=== PATIENT | female | born 1990 | race Caucasian/White ===

== ENCOUNTER 2022-07-04 02:37 | Outpatient (CLI) | payer BC, SELFPAY ==
[2022-07-04 11:54] LABS: Kit/Specimen SENT
[2022-07-04 12:03] LABS: Abs Immature Grans 0.03 10^3/uL (0.0-0.06); Absolute Basophil Count 0.02 10^3/uL (0.0-0.2); Absolute Eosinophil Count 0.04 10^3/uL (0.0-0.7); Absolute Lymphocyte Count 1.77 10^3/uL (1.2-3.4); Absolute Monocyte Count 0.65 10^3/uL (0.1-0.8); Absolute Neutrophil Count 7.09 10^3/uL (1.2-6.7); Basophils % 0.2; Eosinophils % 0.4; HCT 35.9 % (36.0-46.0); HGB 12.5 g/dL (11.2-15.7); Immature Grans % 0.3; Lymphocytes % 18.4; MCHC 34.8 % (32.0-36.0); MCV 95 fL (80-95); MPV 10.3 fL (8.0-11.0); Monocytes % 6.8; Neutrophils % 73.9; Platelet Count 246 10^3/uL (130-400); RBC 3.79 10^6/uL (3.93-5.22); RDW 11.8 % (11.7-14.6); RDW-SD 40.6 fL
[2022-07-04 12:35] LABS: *AMPHETAMINES SCREEN URINE Negative (Negative); *BARBITURATES SCREEN URINE Negative (Negative); *BENZODIAZEPINES SCREEN URINE Negative (Negative); Cannabinoids THC Negative (Negative); Cocaine Screen,Urine Negative (Negative); METHADONE URINE SCREEN Negative (Negative); OPIATES URINE SCREEN Negative (Negative); Tricyclic Antidepressants Negative (Negative)
[2022-07-04 13:14] LABS: TSH (W/Ref FT4) 2.09 uIU/mL (0.36-3.74)
[2022-07-05 10:35] LABS: Hepatitis B Surface Ag Negative (Negative)
[2022-07-05 10:44] LABS: Varicella IgG Antibody Positive (See Note)
[2022-07-05 10:51] LABS: Rubella IgG Ab (UVM) Positive (See Note)
[2022-07-05 11:00] LABS: Hepatitis C Ab w Rflx HCV PCR Negative (Negative)
[2022-07-05 11:11] LABS: HIV-1/2 Ag & Ab Screen Negative (Negative)
[2022-07-05 15:09] LABS: Chlamydia Result Negative (Negative); GC Result Negative (Negative)
[2022-07-06 19:07] LABS: Syphilis IgG w/Reflex Nonreactive (Nonreactive)
[2022-07-11 14:26] LABS: Buprenorphine Negative ng/mL (Cutoff: 5.0); Norbuprenorphine Negative ng/mL (Cutoff: 2.5)
== END 2022-07-04 02:38 | disposition home or self-care (01) ==
LOC: LBO 02:38
PROVIDERS: Visit Provider Advanced Practice Midwife
DX: Z34.91 Encounter for supervision of normal pregnancy, unspecified, first trimester (principal); Z3A.10 10 weeks gestation of pregnancy
CPT/HCPCS: 36415; 80307; 86787; 86803; 86850; 86900; 86901; 87340; 87389; 87491; 87591; 84443; 85025; 86762; 86780; 87086

== ENCOUNTER 2022-07-04 12:51 | Outpatient (REF) | payer BC, SELFPAY ==
--- NOTE | 2022-07-04 11:20 | PAPFT_PTH ---
PATIENT: Svetlana Nowak LOC: [facility] U#:[id number] AGE/SX: 32/F ROOM: RE07/04/[address]: Shaneka Blount CNM : 1990 BED: DIS: 07/04/2022 SPEC #: [id number] RECD: 07/04/22 13:02 STATUS: ABHIJIT REQ #: [id number] ELIZA: 07/04/22 11:[address]: Shaneka Blount DEPT: [facility] Cytology RECD BY: Ines Snyder Tissues: 1 - CX/ENDOCX FOR PAP SMEARS Procedures: PAP THIN PREP/UVM Screening Comments: [id number]
== END 2022-07-04 12:52 | disposition home or self-care (01) ==
LOC: LBN 12:51
PROVIDERS: Visit Provider Advanced Practice Midwife
DX: Z12.4 Encounter for screening for malignant neoplasm of cervix (principal)
CPT/HCPCS: 88142

== ENCOUNTER 2022-11-06 02:14 | Outpatient (CLI) | payer BC, SELFPAY ==
[2022-11-06 10:51] LABS: HCT 35.9 % (36.0-46.0); HGB 12.2 g/dL (11.2-15.7); MCH 33.2 pg (27.0-33.0); MCV 98 fL (80-95); Platelet Count 222 10^3/uL (130-400); RBC 3.67 10^6/uL (3.93-5.22); RDW 12.6 % (11.7-14.6); RDW-SD 45.4 fL; WBC 11.41 10^3/uL (4.4-10.8)
[2022-11-06 11:07] LABS: Glucose,1 Hr (Glucola) 102 mg/dL (80-140)
== END 2022-11-06 02:15 | disposition home or self-care (01) ==
LOC: LBO 02:15
PROVIDERS: Visit Provider Advanced Practice Midwife
DX: Z34.93 Encounter for supervision of normal pregnancy, unspecified, third trimester (principal)
CPT/HCPCS: 36415; 82950; 85027

== ENCOUNTER 2022-12-17 01:51 | Outpatient (CLI) | payer BC, SELFPAY ==
--- NOTE | 2022-12-17 07:00 | DI.US_ITS ---
Exam(s) US OB ADRIANA WEIGHT EXAM: US OB ADRIANA WEIGHT CLINICAL HISTORY: growth and ADRIANA,HYPERTENSION,Z34.90. TECHNIQUE: Transabdominal obstetrical ultrasound performed. COMPARISON: US US OB 2-3 TRIMESTER from 09/05/2022 FINDINGS: Number of fetuses: 1 position: Cephalic Placental location: There is a grade 2 placenta located predominantly on the left. No evidence of pr evia. BIOMETRIC DATA: BPD: 9.05cm, 36weeks 5days HC: 32.95cm, 37weeks 3days AC: 29.38cm, 33weeks 3days FL: 6.51cm, 33weeks 4days EFW: 2,359.64g, 5lb 4.2oz, 55.9% Composite Age: 35weeks 2days ASHLEY: 01/19/2023 Heart Rate: 157bpm Amniotic fluid index: 17.13cm. Visually, amount of fluid is within normal limits. IMPRESSION: 1. Single live intrauterine gestation as above. 2. Estimated weight is 2360gms. This is the 56th percentile. 3. Amniotic fluid index is 17.1 cm. Visually within normal limits. DATA REPOSITORY:
== END 2022-12-17 02:11 ==
LOC: DI 01:52
PROVIDERS: Visit Provider Advanced Practice Midwife
DX: O10.013 Pre-existing essential hypertension complicating pregnancy, third trimester (principal); Z3A.35 35 weeks gestation of pregnancy
CPT/HCPCS: 76816

== ENCOUNTER 2023-01-02 14:53 | Outpatient (REF) | payer BC, SELFPAY ==
[2023-01-02 13:32] LABS: *AMPHETAMINES SCREEN URINE Negative (Negative); *BARBITURATES SCREEN URINE Negative (Negative); *BENZODIAZEPINES SCREEN URINE Negative (Negative); Cannabinoids THC Negative (Negative); Cocaine Screen,Urine Negative (Negative); METHADONE URINE SCREEN Negative (Negative); OPIATES URINE SCREEN Negative (Negative)
[2023-01-02 13:33] LABS: Tricyclic Antidepressants Negative (Negative)
[2023-01-05 10:26] LABS: Buprenorphine Negative ng/mL (Cutoff: 5.0); Norbuprenorphine Negative ng/mL (Cutoff: 2.5)
== END 2023-01-02 14:54 | disposition home or self-care (01) ==
LOC: LBN 14:53
PROVIDERS: Visit Provider Advanced Practice Midwife
DX: Z34.93 Encounter for supervision of normal pregnancy, unspecified, third trimester (principal); Z36.85 Encounter for antenatal screening for Streptococcus B; Z3A.36 36 weeks gestation of pregnancy
CPT/HCPCS: 80307; 80348; 87081

== ENCOUNTER 2023-01-16 10:04 | Outpatient (CLI) | payer BC, SELFPAY ==
[2023-01-16 10:41] VITALS: BP 131/85; PULSE 88
[2023-01-16 10:45] LABS: HCT 36.9 % (36.0-46.0); HGB 12.4 g/dL (11.2-15.7); MCH 32.5 pg (27.0-33.0); MCHC 33.6 % (32.0-36.0); MCV 97 fL (80-95); MPV 10.2 fL (8.0-11.0); Platelet Count 202 10^3/uL (130-400); RBC 3.82 10^6/uL (3.93-5.22); WBC 13.01 10^3/uL (4.4-10.8)
[2023-01-16 11:06] LABS: ALT 20 U/L (14-59); AST 17 U/L (15-37); Albumin 2.7 g/dL (3.4-5.0); Alkaline Phosphatase 98 U/L (46-116); Anion Gap 7.8 mmol/L (3-11); BUN 7 mg/dL (7-18); Bilirubin, Total 0.4 mg/dL (0.2-1.0); CO2 25.2 mmol/L (21.0-32.0); CREATININE 0.5 mg/dL (0.55-1.02); Calcium 8.7 mg/dL (8.5-10.1); Chloride 104 mmol/L (98-107); Estimated GFR 126.93 (mL/min/1.73m2); Glucose 85 mg/dL (74-106); LDH 152 U/L (81-234); Potassium 3.8 mmol/L (3.5-5.1); Sodium 137 mmol/L (136-145); Total Protein 6.5 g/dL (6.4-8.2); Uric Acid 3.9 mg/dL (2.6-6.0)
[2023-01-16 11:11] LABS: COMMENT (LAB VIEW ONLY) 101.74 mg/dL; PROTEIN 13.8 mg/dL; Prot/Crea Ur Ratio 0.13
[2023-01-16 11:26] VITALS: BP 131/85; PULSE 88; TEMP 36.6
--- NOTE | 2023-01-16 11:31 | W.OBNST ---
Date of service: 01/16/23 Time of Service: 11:25 NST Evaluation Reason for NST Reasons for Nonstress Test: GESTATIONAL HYPERTENSION Test and Monitor Explained Test/Monitor Explained: Test Explained, Monitor Explained and Patient Verbalized Understanding Vital Signs Blood Pressure: 131/85 Pulse: 88 Temperature: 97.9 F Urine Results Urine Protein: Negative Urine Ketones: Negative Urine Glucose: Negative Urine Blood: Negative NST Information Date on Monitor: 01/16/23 Time on Monitor: 10:09 Date off Monitor: 01/16/23 Time off Monitor: 11:18 Total Time on Monitor: 69 NST Interventions: PO Hydration and Other Contraction Frequency: Occasional NST Evaluation Patient States Movement: Present FHR Baseline: 160 Variability: Moderate 6-25 bpm Accelerations: 15x15 Decelerations: None NST Results: Reactive NST Results Other: CNM reviewed strip, aware of original tachicardia Note N/A NST Note Note: NST is reactive and reassuring. Patient had pre-eclampsia labs done which are negative. No signs of ANDUJAR, visual disturbance or epigastric pain. No edema. She will return for NST on 01/21/23. We discussed possible IOL by due date. KHOA NST Reviewed and Verified by: Shaneka Blount
[2023-01-16 11:33] VITALS: BP 131/85; PULSE 88; TEMP 36.6
== END 2023-01-16 11:20 | disposition home or self-care (01) ==
LOC: BCD 10:15 → OBS 10:16
PROVIDERS: Visit Provider Advanced Practice Midwife
DX: O13.3 Gestational [pregnancy-induced] hypertension without significant proteinuria, third trimester (principal); Z3A.38 38 weeks gestation of pregnancy
CPT/HCPCS: 59025; 36415; 80053; 85027; 82565; 83615; 84156; 84550

== ENCOUNTER 2023-01-21 13:10 | Outpatient (CLI) | payer BC, SELFPAY ==
[2023-01-21 14:53] VITALS: BP 128/75; PULSE 98; TEMP 37.1
[2023-01-21 15:19] VITALS: BP 128/75; PULSE 98
--- NOTE | 2023-01-21 15:58 | W.OBNST ---
Date of service: 01/21/23 Time of Service: 15:58 NST Evaluation Reason for NST Reasons for Nonstress Test: GESTATIONAL HYPERTENSION Gestational Age Gestational Age in Weeks and Days: 38 Weeks and 5Days Test and Monitor Explained Test/Monitor Explained: Test Explained, Monitor Explained and Patient Verbalized Understanding Vital Signs Blood Pressure: 128/75 Pulse: 98 Temperature: 98.8 F Urine Results Urine Protein: Negative Urine Ketones: Negative Urine Glucose: Negative Urine Blood: Negative NST Information Date on Monitor: 01/21/23 Time on Monitor: 14:48 Date off Monitor: 01/21/23 Time off Monitor: 15:32 Total Time on Monitor: 44 NST Interventions: PO Hydration Contraction Frequency: Irregular NST Evaluation Patient States Movement: Present FHR Baseline: 145 Variability: Moderate 6-25 bpm Accelerations: 15x15 Decelerations: Variable NST Results: Reactive Note ADRIANA (11) Indication: Other (variables) Largest Vertical Pocket: 7 Total ADRIANA: 11 Other Pertinent Findings: Heart Rate and Presentation (vertex) Coding for ADRIANA w/NST: Completed Exam NST Note Note: Category 1, reactive nonstress test with occasional variable decelerations. Bedside ultrasound performed for ADRIANA and position. vertex is noted in the pelvis and ADRIANA equals 11. NST Reviewed and Verified by: Marsha Saldivar
[2023-01-21 15:59] VITALS: BP 128/75; PULSE 98; TEMP 37.1
--- NOTE | 2023-01-21 16:28 | W.OBNST ---
Date of service: 01/21/23 Time of Service: 14:50 NST Evaluation Reason for NST Reasons for Nonstress Test: GESTATIONAL HYPERTENSION Gestational Age Gestational Age in Weeks and Days: 38 Weeks and 5Days Test and Monitor Explained Test/Monitor Explained: Test Explained, Monitor Explained and Patient Verbalized Understanding Vital Signs Blood Pressure: 128/75 Pulse: 98 Temperature: 98.8 F Urine Results Urine Protein: Negative Urine Ketones: Negative Urine Glucose: Negative Urine Blood: Negative NST Information Time on Monitor: 14:48 Date off Monitor: 01/21/23 Time off Monitor: 15:32 NST Interventions: PO Hydration Contraction Frequency: Irregular NST Evaluation Patient States Movement: Present FHR Baseline: 145 Variability: Moderate 6-25 bpm Accelerations: 15x15 Decelerations: Variable NST Results: Reactive Note N/A (see separate POCUS note from Dr. Saldivar. ) NST Note Note: NST is reactive but there were intermittent variable decelerations noted on tracing. Dr. Saldivar did ADRIANA that was 11 and we were able to see breathing on US. Decision to repeat NST and consider IOL for at 39 weeks was made. VE closed/70/-2 mid position medium consistency. KHOA NST Reviewed and Verified by: Shaneka Blount
[2023-01-21 16:30] VITALS: BP 128/75; PULSE 98; TEMP 37.1
== END 2023-01-21 16:30 | disposition home or self-care (01) ==
LOC: BCD 13:11 → OBS 14:43
PROVIDERS: Visit Provider Advanced Practice Midwife
DX: O13.3 Gestational [pregnancy-induced] hypertension without significant proteinuria, third trimester (principal); Z3A.38 38 weeks gestation of pregnancy
CPT/HCPCS: 59025

== ENCOUNTER 2023-01-24 08:43 | Outpatient (CLI) | payer BC, SELFPAY ==
[2023-01-24 09:58] VITALS: BP 140/88; PULSE 102; TEMP 36.9
[2023-01-24 10:09] VITALS: BP 140/88; PULSE 102
[2023-01-24 10:32] VITALS: BP 121/70; PULSE 96
[2023-01-24 10:33] LABS: HCT 37.3 % (36.0-46.0); HGB 12.7 g/dL (11.2-15.7); MCH 32.8 pg (27.0-33.0); MCV 96 fL (80-95); MPV 10.1 fL (8.0-11.0); Platelet Count 212 10^3/uL (130-400); RBC 3.87 10^6/uL (3.93-5.22); RDW-SD 45.5 fL
[2023-01-24 10:59] LABS: ALT 23 U/L (14-59); AST 19 U/L (15-37); Albumin 2.7 g/dL (3.4-5.0); Alkaline Phosphatase 104 U/L (46-116); Anion Gap 12.3 mmol/L (3-11); BUN 8 mg/dL (7-18); Bilirubin, Total 0.4 mg/dL (0.2-1.0); CO2 22.7 mmol/L (21.0-32.0); CREATININE 0.5 mg/dL (0.55-1.02); Calcium 8.5 mg/dL (8.5-10.1); Chloride 102 mmol/L (98-107); Estimated GFR 126.93 (mL/min/1.73m2); Glucose 94 mg/dL (74-106); Potassium 3.7 mmol/L (3.5-5.1); Sodium 137 mmol/L (136-145); Total Protein 6.5 g/dL (6.4-8.2); Uric Acid 4.3 mg/dL (2.6-6.0)
[2023-01-24 11:29] VITALS: BP 140/88; PULSE 102; TEMP 36.9
[2023-01-24 11:29] LABS: COMMENT (LAB VIEW ONLY) 40.37 mg/dL; PROTEIN 6.9 mg/dL; Prot/Crea Ur Ratio 0.17
--- NOTE | 2023-01-24 11:29 | W.OBNST ---
Date of service: 01/24/23 Time of Service: 11:29 NST Evaluation Reason for NST Reasons for Nonstress Test: GESTATIONAL HYPERTENSION Gestational Age Gestational Age in Weeks and Days: 39 Weeks and 1Days Test and Monitor Explained Test/Monitor Explained: Test Explained, Monitor Explained and Patient Verbalized Understanding Vital Signs Blood Pressure: 140/88 Pulse: 102 Temperature: 98.4 F Urine Results Urine Protein: Negative Urine Ketones: Negative Urine Glucose: Negative Urine Blood: Negative NST Information Date on Monitor: 01/24/23 Time on Monitor: 09:55 Date off Monitor: 01/24/23 Time off Monitor: 10:50 Total Time on Monitor: 55 NST Interventions: PO Hydration Contraction Frequency: 0 NST Evaluation Patient States Movement: Present FHR Baseline: 150 Variability: Moderate 6-25 bpm Accelerations: 15x15 Decelerations: None NST Results: Reactive Note N/A NST Note Note: BP 140/88 and 121/70. preeclampsia labs sent CBC and CMP WNL. urine pending. offered induction of labor today. Svetlana declines. Risks reviewed as well as signs of preeclampsia. RTO 01/28 for NST and poosible induction of labor. Dr. Saldivar notified of this plan. NST Reviewed and Verified by: Shaneka Kruse
== END 2023-01-24 11:24 | disposition home or self-care (01) ==
LOC: BCD 08:47 → OBS 09:54
PROVIDERS: Advanced Practice Midwife; Visit Provider Advanced Practice Midwife
DX: O13.3 Gestational [pregnancy-induced] hypertension without significant proteinuria, third trimester (principal); Z3A.39 39 weeks gestation of pregnancy
CPT/HCPCS: 59025; 80053; 85027; 82565; 84156; 84550

== ENCOUNTER 2023-01-28 08:04 | Outpatient (CLI) | payer BC, SELFPAY ==
[2023-01-28 10:03] VITALS: BP 127/75; PULSE 91; TEMP 36.8
[2023-01-28 10:20] VITALS: BP 127/75; PULSE 91
[2023-01-28 10:36] VITALS: BP 130/84; PULSE 92
--- NOTE | 2023-01-28 11:50 | W.OBNST ---
Date of service: 01/28/23 Time of Service: 11:50 NST Evaluation Reason for NST Reasons for Nonstress Test: GESTATIONAL HYPERTENSION Gestational Age Gestational Age in Weeks and Days: 39 Weeks and 5Days Test and Monitor Explained Test/Monitor Explained: Test Explained, Monitor Explained and Patient Verbalized Understanding Vital Signs Blood Pressure: 127/75 Pulse: 91 Temperature: 98.2 F Urine Results Urine Protein: Negative Urine Ketones: Negative Urine Glucose: Negative Urine Blood: Negative NST Information Date on Monitor: 01/28/23 Time on Monitor: 09:55 Date off Monitor: 01/28/23 Time off Monitor: 10:35 Total Time on Monitor: 40 NST Interventions: PO Hydration NST Evaluation Patient States Movement: Present FHR Baseline: 145 Variability: Moderate 6-25 bpm Accelerations: 15x15 Decelerations: None NST Results: Reactive Note N/A NST Note Note: Svetlana is here for NST for chronic hypertension. Induction at 40 weeks was discussed. Svetlana would like to wait until 40 + 1 weeks and that was scheduled. IOL methods discussed. SVE - cervix FT/70%/-2. Signs of labor reviewed. Normal labs 01/24/23. No edema. Signs of preeclampsia reviewed. NST Reviewed and Verified by: Shaneka Kruse
[2023-01-28 11:52] VITALS: BP 127/75; PULSE 91; TEMP 36.8
== END 2023-01-28 10:45 | disposition home or self-care (01) ==
LOC: BCD 08:05 → OBS 10:01
PROVIDERS: Visit Provider Advanced Practice Midwife
DX: O13.3 Gestational [pregnancy-induced] hypertension without significant proteinuria, third trimester (principal); Z3A.39 39 weeks gestation of pregnancy
CPT/HCPCS: 59025

== ENCOUNTER 2023-01-30 09:41 | Inpatient (IN) | payer BC, SELFPAY ==
[2023-01-30] VITALS (122 sets, daily range): BP systolic 104–189; BP diastolic 55–84; PULSE 79–125; RESP 16; TEMP 36.3–37.6; O2SAT 96–100; BMI 34.6
[2023-01-30 09:59] LABS: Source Nasal/Nares
[2023-01-30 10:13] LABS: ROM Plus Positive
[2023-01-30 10:23] LABS: HCT 37.5 % (36.0-46.0); HGB 13.3 g/dL (11.2-15.7); MCH 33.3 pg (27.0-33.0); MCHC 35.5 % (32.0-36.0); MCV 94 fL (80-95); MPV 10.2 fL (8.0-11.0); Platelet Count 253 10^3/uL (130-400); RBC 3.99 10^6/uL (3.93-5.22); RDW-SD 45.1 fL; WBC 18.91 10^3/uL (4.4-10.8)
[2023-01-30 10:33] LABS: COVID-19 PCR Negative (Negative)
[2023-01-30 10:45] LABS: ALT 21 U/L (14-59); AST 19 U/L (15-37); Albumin 2.9 g/dL (3.4-5.0); Alkaline Phosphatase 116 U/L (46-116); Anion Gap 12.6 mmol/L (3-11); BUN 6 mg/dL (7-18); Bilirubin, Total 0.4 mg/dL (0.2-1.0); CO2 20.4 mmol/L (21.0-32.0); CREATININE 0.5 mg/dL (0.55-1.02); Calcium 8.9 mg/dL (8.5-10.1); Chloride 103 mmol/L (98-107); Estimated GFR 126.93 (mL/min/1.73m2); Glucose 92 mg/dL (74-106); Potassium 3.8 mmol/L (3.5-5.1); Sodium 136 mmol/L (136-145); Total Protein 6.9 g/dL (6.4-8.2)
--- NOTE | 2023-01-30 12:28 | HPE_ITS ---
Date of service: 01/30/23 Time of Service: 12:28 Assessment and Plan Assessment and plan (1) Spontaneous onset of labor: Status: Acute Assessment and plan: Admit to Center. Comfort measures. Covid- 19 test. Anticipate . (2) Stage 1 hypertension: Status: Acute Assessment and plan: preeclampsia labs ordered with admission labs. Will continue to monitor BP. OB-HPI Labor/Delivery History of Present Illness Reason for Visit: Early Labor Chief Complaint: Uterine Contractions; Suspected Rupture of Membranes (clear fluid) , Associated Signs and Symptoms of Suspected ROM: none. ASHLEY Calculator Estimated Delivery Date Method Current WG Current Estimate 01/30/23 LMP (Certain) 40w 0d Other Estimates 01/27/23 Ultrasound #1 40w 3d Comments: Svetlana called and reported SROM at 0130 with contractions that began at 0230. History of Present Expected Delivery Route/Plan - CNM FOB/ - Adal Nowak BG - Lily Desires low intervention labor, interested in using tub, open to epidural if needed GBS negative Specific Issues/Plan 1. Panorama LR female, declines CF/SMA and AFP 2. Stage I HTN, start low dose ASA @ 12 wks- 2a. growth US at 33 weeks -56%ile, 17.1 PFSH All Active Problems (Updated 01/30/23 @ 12:48 by Shaneka Kruse CNM) Spontaneous onset of labor (Acute) Stage 1 hypertension (Acute) (Acute) Medical History (Updated 01/30/23 @ 12:48 by Shaneka Kruse CNM) Positive test Family History (Updated 07/04/22 @ 10:50 by Shaneka Bolunt CNM) Father Hyperlipidemia Hypertension Mother Hyperlipidemia Paternal Grandmother Heart disease Hypertension Paternal Uncle Heart disease Hypertension Paternal Aunt Heart disease Hypertension Paternal Grandfather Cancer stomach cancer Social History (Updated 07/04/22 @ 10:53 by Shaneka Blount CNM) Smoking/Tobacco Use Status: Never Second Hand Exposure: No Smoking risk assessment performed?: Yes Alcohol Intake: former Adopted: No Foster care: No Household members: spouse Housing: house Communication Needs: None Do you need help understanding health information?: Never current occupation: homemaker Pets and animals: Yes (Photos to Photos, Key) Sexually active: Yes Do you think of yourself as: straight/heterosexual Current gender identity: female History History 1 Para 0 Hx # Term Pregnancies 0 Multiple births 0 Hx # Pregnancies 0 Ectopic pregnancies 0 AB induced 0 Hx Number of Living Children 0 AB spontaneous 0 Meds Allergies and Home Medications Allergies Allergy/AdvReac Type Severity Reaction Status Date / Time No Known Allergies Allergy Verified 01/16/23 09:33 Home Medications Medication Instructions Recorded Confirmed Type prenat.vits,blas,iyf-vviz-dguqu 1 tab PO DAILY 05/22/22 01/16/23 History aspirin 81 mg tablet,delayed 81 mg PO DAILY 07/31/22 01/16/23 History release famotidine 10 mg tablet (Pepcid AC) 10 mg PO DAILY PRN 12/19/22 01/16/23 History Exam Detailed Labor and Delivery Exam Dilation: 0.5 Effacement (%): 90 station: -1 Cervix position: mid Consistency: soft Vargas Score: Cervical Points Exam 0 1 2 3 Dilation Closed 1-2cm 3-4 cm 5-6cm Effacement 0-30% 40-50% 60-70% 80% Consistency Firm Medium Soft Station -3 -2 -1,0 +1,+2 Position Posterior Mid Anterior Amniotic Membrane Status: Ruptured Rupture Method: Spontaneous Amniotic Fluid: Clear Pooling: Negative Nitrazine: Equivocal ROM Plus: Positive Monitor Mode: External Contraction Frequency(min): every 3 min Contraction Duration(sec): 50-60 Contraction Intensity: Mild/Moderate Fetus A Heart Rate Baseline: 140 Monitor Accelerations: 15 X 15 Monitor Decelerations: None Variability: Moderate (6-25 BPM) Presentation: Vertex Categories: Category I Date of Membrane Rupture: 01/30/23 Time of Membrane Rupture: 01:30 Respiratory Exam Respiratory Exam: Normal Cardiovascular Exam Cardiovascular Exam: Normal Abdominal Exam Abdominal Exam: Normal Exam Exam: Normal Extremities Exam Extremities Exam: Normal Skin Exam Skin Exam: Normal (no edema) Psychiatric Exam Psychiatric Exam: Normal (tired) Results Abnormal Lab Findings: Abnormal Labs 01/30/23 01/30/23 10:05 10:05 WBC 18.91 H MCH 33.3 H Carbon Dioxide 20.4 L Anion Gap 12.6 H BUN 6 L Creatinine 0.5 L Albumin 2.9 L Risk Assessment Risk for Shoulder Dystocia Historical/Initial OB: NEGATIVE FOR: Pelvic Abnormality, Pre- BMI>30, Previous Shoulder Dystocia or Previous Macrosomia Delivery Plan @ 36wks: spont labor, Delivery Plan @ 40 wks: planned Risk for Pre-Eclampsia Date Initiated/Initials: 07/04/22 Yes, if one or more: POSTIVE FOR: Chronic HTN; NEGATIVE FOR: Hx Pre-E/Gest HTN, Multiple Gestation, Pre-gestational DM, Renal Disease, Systemic Lupus or APA Syndrome Yes, if 2 or more: POSITIVE FOR: Nulliparity; NEGATIVE FOR: Age>= 35 yrs, >10yr btwn pregnancies, BMI>30, ethinicty, Mother/Sister w/ Pre-E or Previous IUGR Risk for Post- Hemorrhage Initial: NEGATIVE FOR: Multiple Gestation, Previous PPH, Known Clotting Deficiency, Grand Multiparity or Anticoagulation Counseled re: Active Management: Yes Risks Reviewed Risks Reviewed Upon Admission: Yes
--- NOTE | 2023-01-30 15:28 | W.ANESPRE ---
General Info Date of Service Date Performed: 01/30/23 Height: 5 ft 2 in Weight: 85.899 kg Body Mass Index (BMI): 34.6 Meds Allergies and Home Medications Allergies Allergy/AdvReac Type Severity Reaction Status Date / Time No Known Allergies Allergy Verified 01/16/23 09:33 Home Medication Medication Instructions Recorded prenat.vits,blas,jch-cyio-zpoax 1 tab PO DAILY 05/22/22 aspirin 81 mg tablet,delayed 81 mg PO DAILY 07/31/22 release famotidine 10 mg tablet (Pepcid AC) 10 mg PO DAILY PRN 12/19/22 Current Visit Medications: Current Medications Generic Name Dose Route Start Last Admin Trade Name Freq PRN Reason Stop Dose Admin Fentanyl/Ropivacaine 200 ml 01/30/23 15:00 Fentanyl/Ropivacaine 2 Mcg/Ml And 0.1% 200 Ml Cadd Cassette EP DIRECTED VAN Sodium Chloride 500 mls @ 0 mls/hr 01/30/23 09:41 Saline 500ml Bag IV PRN PRN As Directed Ringer's Solution 500 mls @ 500 mls/hr 01/30/23 15:00 IV 01/30/23 15:59 BOLUS ONE IV Miscellaneous Supplies 1 each 01/30/23 09:45 Iv Access IV DIRECTED VAN Sodium Chloride 0 ml 01/30/23 09:41 Normal Saline Flush 10 Ml Syr IVP PRN PRN PFSH Active Problems Active Problems: Problem Status Onset Code Spontaneous onset of labor Stage 1 hypertension I10 Z34.90 Medical History Medical History (Updated 01/30/23 @ 12:48 by Shaneka Kruse CNM) Positive test Tobacco Smoking/Tobacco Use Status: Never Second hand exposure: No Alcohol Alcohol Intake: former Prental History History 1 Para 0 Hx # Term Pregnancies 0 Multiple births 0 Hx # Pregnancies 0 Ectopic pregnancies 0 AB induced 0 Hx Number of Living Children 0 AB spontaneous 0 Vital Signs and Lab Results Vital Signs Most Recent Vital Signs in EMR: Most Recent Vital Signs Temp Pulse Resp BP 36.8 C 100 H 16 126/76 01/30/23 09:32 01/30/23 13:41 01/30/23 09:32 01/30/23 13:41 Lab Results 01/30/23 10:05 01/30/23 10:05 Blood Type / Crossmatch: Patient ABO/Rh O Positive 01/30/23 Antibody Screen NEGATIVE 01/30/23 Complete Blood Count: White Blood Count 18.91 10^3/uL (4.4-10.8) H 01/30/23 10:05 Red Blood Count 3.99 10^6/uL (3.93-5.22) 01/30/23 10:05 Hemoglobin 13.3 g/dL (11.2-15.7) 01/30/23 10:05 Hematocrit 37.5 % (36.0-46.0) 01/30/23 10:05 Platelet Count 253 10^3/uL (130-400) 01/30/23 10:05 Complete Metabolic Panel: Sodium 136 mmol/L (136-145) 01/30/23 10:05 Potassium 3.8 mmol/L (3.5-5.1) 01/30/23 10:05 Chloride 103 mmol/L (98-107) 01/30/23 10:05 Carbon Dioxide 20.4 mmol/L (21.0-32.0) L 01/30/23 10:05 BUN 6 mg/dL (7-18) L 01/30/23 10:05 Creatinine 0.5 mg/dL (0.55-1.02) L 01/30/23 10:05 Est GFR (CKD-EPI 2020) 126.93 (mL/min/1.73m2) 01/30/23 10:05 Calcium 8.9 mg/dL (8.5-10.1) 01/30/23 10:05 Albumin 2.9 g/dL (3.4-5.0) L 01/30/23 10:05 Glucose 92 mg/dL (74-106) 01/30/23 10:05 Liver Function Panel: Alanine Aminotransferase (ALT/SGPT) 21 U/L (14-59) 01/30/23 10:05 Aspartate Amino Transf (AST/SGOT) 19 U/L (15-37) 01/30/23 10:05 Coagulation Panel: No Data to Display Cardiac Panel: No Data to Display Arterial Blood Gas: No Data to Display Venous Blood Gas: No Data to Display Pancreas Panel: No Data to Display Thyroid Panel: No Data to Display Infectious Disease: Coronavirus (COVID-19)(PCR) Negative (Negative) 01/30/23 09:50 Coronavirus 2019 Source Nasal/Nares 01/30/23 09:50 Blood Cultures: No Data to Display Toxicology Panel: Urine Amphetamines Screen Negative (Negative) 01/02/23 10:30 Urine Benzodiazepines Screen Negative (Negative) 01/02/23 10:30 Urine Barbiturates Screen Negative (Negative) 01/02/23 10:30 Urine Cocaine Screen Negative (Negative) 01/02/23 10:30 Urine Methadone Screen Negative (Negative) 01/02/23 10:30 Urine Opiates Screen Negative (Negative) 01/02/23 10:30 Ur Tricyclic Antidepressants Screen Negative (Negative) 01/02/23 10:30 Ur Tetrahydrocannabinol (THC) Scrn Negative (Negative) 01/02/23 10:30 Panel: No Data to Display Anesthesia Assessment and Plan Anesthesia History Personal History: No History of Anesthesia Complications Family History: No Family History of Anesthesia Complications Exercise Tolerance Exercise Tolerance: Metabolic Equivalents>4 Pertinent Negatives Pertinent Negatives: No Symptoms of GERD Cardiac & Pulmonary Exam Cardiac Exam: Normal S1/S2 Heart Sounds Pulmonary Exam: Clear Bilateral Breath Sounds Implantable Cardiac Device Does patient have a Pacemaker or an ICD?: No Airway Exam Known Difficult Airway: No Mallampati Class: 2 Mouth Opening: Normal (> 3cm) Thyromental Distance: Greater than 3 cm Neck Range of Motion: Full ROM Neck Circumference: Normal Teeth Condition: Normal Dentition ASA Classification ASA Score: ASA 2 Emergency Case?: No NPO Status NPO Status: NPO Clears >2 hours, Solids >8 hours Status Status: Confirmed Anesthesia Plan Resuscitation Status: Full Code Anesthesia Technique: Epidural Anesthesia Airway Planned: Natural Airway Pain Management: Surgeon and patient request nerve block Monitors Used: Standard Monitors
[2023-01-30] MEDS: Lactated Ringers 500 ML IV (15:30)
--- NOTE | 2023-01-30 16:03 | ANES.NEUR_ITS ---
Epidural/Spinal Catheter Date Performed: 01/30/23 Procedure Start: 15:41 Procedure Stop: 15:52 Requesting Provider: Shaneka Kruse Procedure Location: Obstetrics Reason Performed: Labor Epidural Standard Monitors Applied: Blood Pressure, SpO2 and See EMR for corresponding vital signs Patient Position: Sitting Sedation Given (Indicate Dose Given): No Sedation given Patient Mental Status: Awake Sterility: Hand Hygiene, Surgical Cap, Surgical Mask, Sterile Gloves, Sterile Drape/Sheet and Chlorhexidine Procedure Location: L3-L4 Interspace Epidural Needle: Tuohy 17 Guage Needle Length: 3.5 Inch Needle Approach: Midline Epidural Procedure: Skin Prepped, Sterile Drape Placed, 1% Lidocaine to skin and subcutaneous tissue with 25G needle, Tuohy Needle placed, CALIN to Saline Used, Epidural Catheter Placed, Negative Heme, Negative CSF Flow and Tuohy Needle Removed Catheter Placed?: Catheter Placed Test Dose (Indicate Dose Given): 5ml 1.5% Lidocaine with 1:200K Epinephrine Given and Negative Test Dose Loss of Resistance Depth (cm): 8 Catheter depth at skin (cm): 14 Dressing: Sorbaview Dressing Placed, Mastisol Used and Dressing reinforced with Tape Epidural Pr ovider Bolus (Indicate Dose Given): Total Bupivacaine 0.25% Given (ml) Dose:: 2 ml Additives (Indicate Dose Given ): Fentanyl PF Dose:: 25 Infusion Medication: Medication Infusion Began Medication Infusion: Ropivacaine 0.1% with Fentanyl 2mcg/ml Maintenance Infusion Rate (ml/hour): 10 PCEA Bolus Dose (ml): 5 Block Level: T9 Paresthesia: None Ultrasound: Not Used Number of Attempts (See previous attempts in note section): 1 Procedure Tolerated: No Complications and Patient tolerated well Procedure Outcome: Successful Performed By: Lorne Martinez
[2023-01-30] MEDS: Bupivacaine 0.25% Pres-Free 10 ML VIAL EP (16:04)
[2023-01-30] MEDS: FentaNYL/ROPIvacaine 2 mcg/ml and 0.1% 200 ML CADD Cassette EP (16:04)
[2023-01-30] MEDS: fentaNYL 100 MCG/2 ML VIAL EP (16:05)
--- NOTE | 2023-01-30 16:45 | W.PM.OBNL1 ---
Date of service: 01/30/23 Time of Service: 16:46 Informed Consent Informed Consent: Risk,Benefits,Alternatives Discussed (all methods of pain relief discussed. ) Pelvic Exam Dilation: 1 Effacement (%): 100 station: -1 Cervix Position: posterior Consistency: soft Vaginal Exam Presentation: Vertex Pooling: Positive Contractions Monitor Mode: External Contraction Frequency(min): every 3-4 Contraction Duration(sec): 50-60 Intensity: Mild/Moderate Fetus A Monitor: External (US) Heart Rate Baseline: 140 Presentation: Vertex Variability: Moderate (6-25 BPM) Categories: Category I FHR Rhythm: Regular Accelerations: 15 X 15 Decelerations: None Amniotic Membrane Status: Ruptured Assessment and Plan Assessment and plan (1) Spontaneous onset of labor: Status: Acute Assessment and plan: Epidural provided by Lorne mcmillan CRNA. with excellent effect. Continue to assess progress in labor, consider pitocin if indicated, Anticipate (2) Prolonged rupture of membranes: Status: Acute Assessment and plan: Afebrile. Anticipate Objective Abnormal lab results 01/30/23 01/30/23 Range/Units 10:05 10:05 WBC 18.91 H (4.4-10.8) 10^3/uL MCH 33.3 H (27.0-33.0) pg Carbon Dioxide 20.4 L (21.0-32.0) mmol/L Anion Gap 12.6 H (3-11) mmol/L BUN 6 L (7-18) mg/dL Creatinine 0.5 L (0.55-1.02) mg/dL Albumin 2.9 L (3.4-5.0) g/dL Temp Pulse Resp BP Pulse Ox 97.3 F L 103 H 16 108/56 L 98 01/30/23 15:45 01/30/23 16:44 01/30/23 09:32 01/30/23 16:39 01/30/23 16:44 Laboratory Results WBC 18.91 10^3/uL (4.4-10.8) H 01/30/23 10:05 RBC 3.99 10^6/uL (3.93-5.22) 01/30/23 10:05 Hgb 13.3 g/dL (11.2-15.7) 01/30/23 10:05 Hct 37.5 % (36.0-46.0) 01/30/23 10:05 MCV 94 fL (80-95) 01/30/23 10:05 MCH 33.3 pg (27.0-33.0) H 01/30/23 10:05 MCHC 35.5 % (32.0-36.0) 01/30/23 10:05 RDW 13.0 % (11.7-14.6) 01/30/23 10:05 Plt Count 253 10^3/uL (130-400) 01/30/23 10:05 MPV 10.2 fL (8.0-11.0) 01/30/23 10:05 Sodium 136 mmol/L (136-145) 01/30/23 10:05 Potassium 3.8 mmol/L (3.5-5.1) 01/30/23 10:05 Chloride 103 mmol/L (98-107) 01/30/23 10:05 Carbon Dioxide 20.4 mmol/L (21.0-32.0) L 01/30/23 10:05 Anion Gap 12.6 mmol/L (3-11) H 01/30/23 10:05 BUN 6 mg/dL (7-18) L 01/30/23 10:05 Creatinine 0.5 mg/dL (0.55-1.02) L 01/30/23 10:05 Est GFR (CKD-EPI 2020) 126.93 (mL/min/1.73m2) 01/30/23 10:05 Glucose 92 mg/dL (74-106) 01/30/23 10:05 Calcium 8.9 mg/dL (8.5-10.1) 01/30/23 10:05 Total Bilirubin 0.4 mg/dL (0.2-1.0) 01/30/23 10:05 AST 19 U/L (15-37) 01/30/23 10:05 ALT 21 U/L (14-59) 01/30/23 10:05 Alkaline Phosphatase 116 U/L (46-116) 01/30/23 10:05 Total Protein 6.9 g/dL (6.4-8.2) 01/30/23 10:05 Albumin 2.9 g/dL (3.4-5.0) L 01/30/23 10:05 Membranes Rupture Positive 01/30/23 09:30 COVID-19 Source Nasal/Nares 01/30/23 09:50 SARS-CoV-2 (PCR) Negative (Negative) 01/30/23 09:50 Patient ABO/Rh O Positive 01/30/23 10:05 Antibody Screen NEGATIVE 01/30/23 10:05 Subjective Interval history since last seen: Svetlana used the shower for comfort and the ball. She came out of the shower and was examined. She complains of feeling tired and is having a difficult time managing the pain. She requests an episural for pain relief. Results Hemoglobin/Hematocrit: Hgb 13.3 g/dL (11.2-15.7) 01/30/23 10:05 Hct 37.5 % (36.0-46.0) 01/30/23 10:05 Abnormal Lab Findings: Abnormal Labs 01/30/23 01/30/23 10:05 10:05 WBC 18.91 H MCH 33.3 H Carbon Dioxide 20.4 L Anion Gap 12.6 H BUN 6 L Creatinine 0.5 L Albumin 2.9 L
[2023-01-30] MEDS: Oxytocin/Normal Saline 30 UNIT/500 ML BAG 2 UNITS IV (18:13)
[2023-01-30] MEDS: Lactated Ringers 1,000 ML 125 ML IV (18:19)
[2023-01-30] MEDS: Calcium Carbonate *TUMS* 500 MG CHEW 1000 MG PO (20:30)
--- NOTE | 2023-01-30 22:03 | W.PM.OBNL1 ---
Date of service: 01/30/23 Time of Service: 22:03 Informed Consent Informed Consent: Risk,Benefits,Alternatives Discussed (all methods of pain relief discussed. ) Pelvic Exam Dilation: 4 Effacement (%): 100 station: -1 Position: LOP Cervix Position: mid Consistency: medium Vaginal Exam Presentation: Vertex Pooling: Positive Comments: cervix edematous, bloody fluid noted after exam. Contractions Monitor Mode: External Contraction Frequency(min): evry 2-3 Contraction Duration(sec): 50 Intensity: Moderate Fetus A Monitor: External (US) Heart Rate Baseline: 140 Presentation: Vertex Variability: Moderate (6-25 BPM) Categories: Category I Accelerations: 15 X 15 Decelerations: Early Recurrence: Episodic Amniotic Membrane Status: Ruptured Assessment and Plan Assessment and plan (1) Spontaneous onset of labor: Status: Acute Assessment and plan: Continue pitocin augmentation to maintain adequate labor pattern. Dr. Saldivar was notified of patient's status by telephone. (2) Prolonged rupture of membranes: Status: Acute Assessment and plan: Afebrile. Will continue to assess vital signs (3) Stage 1 hypertension: Status: Acute Assessment and plan: B.P. is currently . Will continue to monitor B.P readings. Objective Abnormal lab results 01/30/23 01/30/23 Range/Units 10:05 10:05 WBC 18.91 H (4.4-10.8) 10^3/uL MCH 33.3 H (27.0-33.0) pg Carbon Dioxide 20.4 L (21.0-32.0) mmol/L Anion Gap 12.6 H (3-11) mmol/L BUN 6 L (7-18) mg/dL Creatinine 0.5 L (0.55-1.02) mg/dL Albumin 2.9 L (3.4-5.0) g/dL Temp Pulse Resp BP Pulse Ox 98.8 F 87 16 115/56 L 98 01/30/23 21:18 01/30/23 21:49 01/30/23 18:00 01/30/23 21:49 01/30/23 19:29 Laboratory Results WBC 18.91 10^3/uL (4.4-10.8) H 01/30/23 10:05 RBC 3.99 10^6/uL (3.93-5.22) 01/30/23 10:05 Hgb 13.3 g/dL (11.2-15.7) 01/30/23 10:05 Hct 37.5 % (36.0-46.0) 01/30/23 10:05 MCV 94 fL (80-95) 01/30/23 10:05 MCH 33.3 pg (27.0-33.0) H 01/30/23 10:05 MCHC 35.5 % (32.0-36.0) 01/30/23 10:05 RDW 13.0 % (11.7-14.6) 01/30/23 10:05 Plt Count 253 10^3/uL (130-400) 01/30/23 10:05 MPV 10.2 fL (8.0-11.0) 01/30/23 10:05 Sodium 136 mmol/L (136-145) 01/30/23 10:05 Potassium 3.8 mmol/L (3.5-5.1) 01/30/23 10:05 Chloride 103 mmol/L (98-107) 01/30/23 10:05 Carbon Dioxide 20.4 mmol/L (21.0-32.0) L 01/30/23 10:05 Anion Gap 12.6 mmol/L (3-11) H 01/30/23 10:05 BUN 6 mg/dL (7-18) L 01/30/23 10:05 Creatinine 0.5 mg/dL (0.55-1.02) L 01/30/23 10:05 Est GFR (CKD-EPI 2020) 126.93 (mL/min/1.73m2) 01/30/23 10:05 Glucose 92 mg/dL (74-106) 01/30/23 10:05 Calcium 8.9 mg/dL (8.5-10.1) 01/30/23 10:05 Total Bilirubin 0.4 mg/dL (0.2-1.0) 01/30/23 10:05 AST 19 U/L (15-37) 01/30/23 10:05 ALT 21 U/L (14-59) 01/30/23 10:05 Alkaline Phosphatase 116 U/L (46-116) 01/30/23 10:05 Total Protein 6.9 g/dL (6.4-8.2) 01/30/23 10:05 Albumin 2.9 g/dL (3.4-5.0) L 01/30/23 10:05 Membranes Rupture Positive 01/30/23 09:30 COVID-19 Source Nasal/Nares 01/30/23 09:50 SARS-CoV-2 (PCR) Negative (Negative) 01/30/23 09:50 Patient ABO/Rh O Positive 01/30/23 10:05 Antibody Screen NEGATIVE 01/30/23 10:05 Objective Narrative Objective Narrative: BP is 115-139/56/79 Subjective Interval history since last seen: Svetlana has epidural analgesia infusing and received excellent pain relief. She received an IV bolus for hypotension after epidural was placed. She is resting comfortably in various positions. Contractions were every 5 minutes and pitocin augmentation was started and is running at a rate of 10 mu/minute. Results Hemoglobin/Hematocrit: Hgb 13.3 g/dL (11.2-15.7) 01/30/23 10:05 Hct 37.5 % (36.0-46.0) 01/30/23 10:05 Abnormal Lab Findings: Abnormal Labs 01/30/23 01/30/23 10:05 10:05 WBC 18.91 H MCH 33.3 H Carbon Dioxide 20.4 L Anion Gap 12.6 H BUN 6 L Creatinine 0.5 L Albumin 2.9 L
--- NOTE | 2023-01-30 23:26 | W.PM.OBNL1 ---
Date of service: 01/30/23 Time of Service: 23:26 Informed Consent Informed Consent: Risk,Benefits,Alternatives Discussed (all methods of pain relief discussed. ) Pelvic Exam Dilation: 4 Effacement (%): 100 station: -1 Cervix Position: mid Consistency: medium Comments: bloody fluid noted. IUPC placed and cosme placed for 600 cc clear yellow urine. cervix is edematous Contractions Monitor Mode: External Contraction Frequency(min): every 2-4 Contraction Duration(sec): 60 IUPC resting tone (mmHg): 20 IUPC peak pressure (mmHg): 50 Fetus A Monitor: External (US) Heart Rate Baseline: 140 Variability: Moderate (6-25 BPM) Categories: Category I Accelerations: 15 X 15 Decelerations: Early and Variable Assessment and Plan Assessment and plan (1) Prolonged rupture of membranes: Status: Acute Assessment and plan: hourly temperature (2) Spontaneous onset of labor: Status: Acute Assessment and plan: Pitocin augmentation. Will consider increasing pitocin rate if indicated by [place] units. Will plan to re-examine in 2 hours for descent and cervical change. Svetlana was notified of this plan. (3) Stage 1 hypertension: Status: Acute Assessment and plan: B.P. 129-135/59-80 Objective Abnormal lab results 01/30/23 01/30/23 Range/Units 10:05 10:05 WBC 18.91 H (4.4-10.8) 10^3/uL MCH 33.3 H (27.0-33.0) pg Carbon Dioxide 20.4 L (21.0-32.0) mmol/L Anion Gap 12.6 H (3-11) mmol/L BUN 6 L (7-18) mg/dL Creatinine 0.5 L (0.55-1.02) mg/dL Albumin 2.9 L (3.4-5.0) g/dL Temp Pulse Resp BP Pulse Ox 99.6 F 86 16 129/59 L 98 01/30/23 23:17 01/30/23 23:17 01/30/23 18:00 01/30/23 23:17 01/30/23 19:29 Laboratory Results WBC 18.91 10^3/uL (4.4-10.8) H 01/30/23 10:05 RBC 3.99 10^6/uL (3.93-5.22) 01/30/23 10:05 Hgb 13.3 g/dL (11.2-15.7) 01/30/23 10:05 Hct 37.5 % (36.0-46.0) 01/30/23 10:05 MCV 94 fL (80-95) 01/30/23 10:05 MCH 33.3 pg (27.0-33.0) H 01/30/23 10:05 MCHC 35.5 % (32.0-36.0) 01/30/23 10:05 RDW 13.0 % (11.7-14.6) 01/30/23 10:05 Plt Count 253 10^3/uL (130-400) 01/30/23 10:05 MPV 10.2 fL (8.0-11.0) 01/30/23 10:05 Sodium 136 mmol/L (136-145) 01/30/23 10:05 Potassium 3.8 mmol/L (3.5-5.1) 01/30/23 10:05 Chloride 103 mmol/L (98-107) 01/30/23 10:05 Carbon Dioxide 20.4 mmol/L (21.0-32.0) L 01/30/23 10:05 Anion Gap 12.6 mmol/L (3-11) H 01/30/23 10:05 BUN 6 mg/dL (7-18) L 01/30/23 10:05 Creatinine 0.5 mg/dL (0.55-1.02) L 01/30/23 10:05 Est GFR (CKD-EPI 2020) 126.93 (mL/min/1.73m2) 01/30/23 10:05 Glucose 92 mg/dL (74-106) 01/30/23 10:05 Calcium 8.9 mg/dL (8.5-10.1) 01/30/23 10:05 Total Bilirubin 0.4 mg/dL (0.2-1.0) 01/30/23 10:05 AST 19 U/L (15-37) 01/30/23 10:05 ALT 21 U/L (14-59) 01/30/23 10:05 Alkaline Phosphatase 116 U/L (46-116) 01/30/23 10:05 Total Protein 6.9 g/dL (6.4-8.2) 01/30/23 10:05 Albumin 2.9 g/dL (3.4-5.0) L 01/30/23 10:05 Membranes Rupture Positive 01/30/23 09:30 COVID-19 Source Nasal/Nares 01/30/23 09:50 SARS-CoV-2 (PCR) Negative (Negative) 01/30/23 09:50 Patient ABO/Rh O Positive 01/30/23 10:05 Antibody Screen NEGATIVE 01/30/23 10:05 Objective Narrative Objective Narrative: maternal temp 99.6 Subjective Interval history since last seen: Svetlana is resting comfortably. Results Hemoglobin/Hematocrit: Hgb 13.3 g/dL (11.2-15.7) 01/30/23 10:05 Hct 37.5 % (36.0-46.0) 01/30/23 10:05 Abnormal Lab Findings: Abnormal Labs 01/30/23 01/30/23 10:05 10:05 WBC 18.91 H MCH 33.3 H Carbon Dioxide 20.4 L Anion Gap 12.6 H BUN 6 L Creatinine 0.5 L Albumin 2.9 L
[2023-01-31] VITALS (21 sets, daily range): BP systolic 101–129; BP diastolic 55–81; PULSE 88–125; RESP 14–18; TEMP 36.6–39.4; O2SAT 97–100
--- NOTE | 2023-01-31 01:14 | PGE_ITS ---
Date of service: 01/31/23 Time of Service: 01:36 Informed Consent Informed Consent: Risk,Benefits,Alternatives Discussed (all methods of pain relief discussed. ) Pelvic Exam Dilation: 5 Effacement (%): 100 station: -1 Position: ROP Cervix Position: mid Consistency: soft Vaginal Exam Presentation: Vertex Comments: cervical edema and increased molding of the head noted. Contractions Monitor Mode: External Contraction Frequency(min): every 1.5-4 minutes Contraction Duration(sec): 60 IUPC resting tone (mmHg): 15 IUPC peak pressure (mmHg): 70 IUPC [place] units: 150 Fetus A Monitor: External (US) Heart Rate Baseline: 140 Presentation: Vertex Variability: Moderate (6-25 BPM) Categories: Category I FHR Rhythm: Regular Accelerations: 15 X 15 Decelerations: Variable Recurrence: Episodic Assessment and Plan Assessment and plan (1) Prolonged rupture of membranes: Status: Acute Assessment and plan: Svetlana is making slow progress with less than adequate contractions. Will continue to augment labor and re-assess in 2 hours. Rest was encouraged. (2) Stage 1 hypertension: Status: Acute Assessment and plan: BP 102/57 Objective Abnormal lab results 01/30/23 01/30/23 Range/Units 10:05 10:05 WBC 18.91 H (4.4-10.8) 10^3/uL MCH 33.3 H (27.0-33.0) pg Carbon Dioxide 20.4 L (21.0-32.0) mmol/L Anion Gap 12.6 H (3-11) mmol/L BUN 6 L (7-18) mg/dL Creatinine 0.5 L (0.55-1.02) mg/dL Albumin 2.9 L (3.4-5.0) g/dL Temp Pulse Resp BP Pulse Ox 98.5 F 92 H 16 102/57 L 98 01/31/23 00:31 01/31/23 01:01 01/30/23 18:00 01/31/23 01:01 01/30/23 19:29 Laboratory Results WBC 18.91 10^3/uL (4.4-10.8) H 01/30/23 10:05 RBC 3.99 10^6/uL (3.93-5.22) 01/30/23 10:05 Hgb 13.3 g/dL (11.2-15.7) 01/30/23 10:05 Hct 37.5 % (36.0-46.0) 01/30/23 10:05 MCV 94 fL (80-95) 01/30/23 10:05 MCH 33.3 pg (27.0-33.0) H 01/30/23 10:05 MCHC 35.5 % (32.0-36.0) 01/30/23 10:05 RDW 13.0 % (11.7-14.6) 01/30/23 10:05 Plt Count 253 10^3/uL (130-400) 01/30/23 10:05 MPV 10.2 fL (8.0-11.0) 01/30/23 10:05 Sodium 136 mmol/L (136-145) 01/30/23 10:05 Potassium 3.8 mmol/L (3.5-5.1) 01/30/23 10:05 Chloride 103 mmol/L (98-107) 01/30/23 10:05 Carbon Dioxide 20.4 mmol/L (21.0-32.0) L 01/30/23 10:05 Anion Gap 12.6 mmol/L (3-11) H 01/30/23 10:05 BUN 6 mg/dL (7-18) L 01/30/23 10:05 Creatinine 0.5 mg/dL (0.55-1.02) L 01/30/23 10:05 Est GFR (CKD-EPI 2020) 126.93 (mL/min/1.73m2) 01/30/23 10:05 Glucose 92 mg/dL (74-106) 01/30/23 10:05 Calcium 8.9 mg/dL (8.5-10.1) 01/30/23 10:05 Total Bilirubin 0.4 mg/dL (0.2-1.0) 01/30/23 10:05 AST 19 U/L (15-37) 01/30/23 10:05 ALT 21 U/L (14-59) 01/30/23 10:05 Alkaline Phosphatase 116 U/L (46-116) 01/30/23 10:05 Total Protein 6.9 g/dL (6.4-8.2) 01/30/23 10:05 Albumin 2.9 g/dL (3.4-5.0) L 01/30/23 10:05 Membranes Rupture Positive 01/30/23 09:30 COVID-19 Source Nasal/Nares 01/30/23 09:50 SARS-CoV-2 (PCR) Negative (Negative) 01/30/23 09:50 Patient ABO/Rh O Positive 01/30/23 10:05 Antibody Screen NEGATIVE 01/30/23 10:05 Objective Narrative Objective Narrative: Temp was 99.6 and came down to 98.5 Subjective Interval history since last seen: Svetlana was sleeping on her right side when I entered the room. She awoke and reported feeling pressure and pain and has been pushing her [employer] button. Results Hemoglobin/Hematocrit: Hgb 13.3 g/dL (11.2-15.7) 01/30/23 10:05 Hct 37.5 % (36.0-46.0) 01/30/23 10:05 Abnormal Lab Findings: Abnormal Labs 01/30/23 01/30/23 10:05 10:05 WBC 18.91 H MCH 33.3 H Carbon Dioxide 20.4 L Anion Gap 12.6 H BUN 6 L Creatinine 0.5 L Albumin 2.9 L
[2023-01-31] MEDS: Lactated Ringers 1,000 ML 125 ML IV (01:54)
[2023-01-31] MEDS: Lactated Ringers 500 ML IV (02:32)
[2023-01-31] MEDS: AMPICILLIN SODIUM 2 GM in Normal Saline 100 ML IVPB (03:06)
--- NOTE | 2023-01-31 03:11 | PGE_ITS ---
Date of service: 01/31/23 Time of Service: 03:11 Informed Consent Informed Consent: Risk,Benefits,Alternatives Discussed (all methods of pain relief discussed. ) Pelvic Exam Dilation: 4 station: -1 Cervix Position: mid Consistency: medium Comments: cervix more edematous with no descent noted Contractions Monitor Mode: Internal Contraction Frequency(min): every 3-4 Contraction Duration(sec): 60 IUPC resting tone (mmHg): 10 IUPC peak pressure (mmHg): 65 IUPC [place] units: 150 Fetus A Monitor: External (US) Heart Rate Baseline: 155 Presentation: Vertex Variability: Moderate (6-25 BPM) Categories: Category I Accelerations: 15 X 15 Decelerations: None and Variable Recurrence: Episodic Assessment and Plan Assessment and plan (1) Prolonged rupture of membranes: Status: Acute Assessment and plan: I discussed poor progress of labor with Svetlana and her Adal. They are in agreement with delivery. Dr. Saldivar was notified by telephone of patient's status. Non-urgent was called and the OR team is enroute. An IV bolus of LR 500 cc was given and Pitocin was discontinued. Ampicillin 2 g and gentamycin 5 mg/kg is ordered IV now. Objective Abnormal lab results 01/30/23 01/30/23 Range/Units 10:05 10:05 WBC 18.91 H (4.4-10.8) 10^3/uL MCH 33.3 H (27.0-33.0) pg Carbon Dioxide 20.4 L (21.0-32.0) mmol/L Anion Gap 12.6 H (3-11) mmol/L BUN 6 L (7-18) mg/dL Creatinine 0.5 L (0.55-1.02) mg/dL Albumin 2.9 L (3.4-5.0) g/dL Temp Pulse Resp BP Pulse Ox 99.4 F 114 H 16 126/80 98 01/31/23 02:29 01/31/23 02:58 01/30/23 18:00 01/31/23 02:58 01/30/23 19:29 Laboratory Results WBC 18.91 10^3/uL (4.4-10.8) H 01/30/23 10:05 RBC 3.99 10^6/uL (3.93-5.22) 01/30/23 10:05 Hgb 13.3 g/dL (11.2-15.7) 01/30/23 10:05 Hct 37.5 % (36.0-46.0) 01/30/23 10:05 MCV 94 fL (80-95) 01/30/23 10:05 MCH 33.3 pg (27.0-33.0) H 01/30/23 10:05 MCHC 35.5 % (32.0-36.0) 01/30/23 10:05 RDW 13.0 % (11.7-14.6) 01/30/23 10:05 Plt Count 253 10^3/uL (130-400) 01/30/23 10:05 MPV 10.2 fL (8.0-11.0) 01/30/23 10:05 Sodium 136 mmol/L (136-145) 01/30/23 10:05 Potassium 3.8 mmol/L (3.5-5.1) 01/30/23 10:05 Chloride 103 mmol/L (98-107) 01/30/23 10:05 Carbon Dioxide 20.4 mmol/L (21.0-32.0) L 01/30/23 10:05 Anion Gap 12.6 mmol/L (3-11) H 01/30/23 10:05 BUN 6 mg/dL (7-18) L 01/30/23 10:05 Creatinine 0.5 mg/dL (0.55-1.02) L 01/30/23 10:05 Est GFR (CKD-EPI 2020) 126.93 (mL/min/1.73m2) 01/30/23 10:05 Glucose 92 mg/dL (74-106) 01/30/23 10:05 Calcium 8.9 mg/dL (8.5-10.1) 01/30/23 10:05 Total Bilirubin 0.4 mg/dL (0.2-1.0) 01/30/23 10:05 AST 19 U/L (15-37) 01/30/23 10:05 ALT 21 U/L (14-59) 01/30/23 10:05 Alkaline Phosphatase 116 U/L (46-116) 01/30/23 10:05 Total Protein 6.9 g/dL (6.4-8.2) 01/30/23 10:05 Albumin 2.9 g/dL (3.4-5.0) L 01/30/23 10:05 Membranes Rupture Positive 01/30/23 09:30 COVID-19 Source Nasal/Nares 01/30/23 09:50 SARS-CoV-2 (PCR) Negative (Negative) 01/30/23 09:50 Patient ABO/Rh O Positive 01/30/23 10:05 Antibody Screen NEGATIVE 01/30/23 10:05 Objective Narrative Objective Narrative: Temp 99.4 Subjective Interval history since last seen: Svetlana is resting comfortably. Results Hemoglobin/Hematocrit: Hgb 13.3 g/dL (11.2-15.7) 01/30/23 10:05 Hct 37.5 % (36.0-46.0) 01/30/23 10:05 Abnormal Lab Findings: Abnormal Labs 01/30/23 01/30/23 10:05 10:05 WBC 18.91 H MCH 33.3 H Carbon Dioxide 20.4 L Anion Gap 12.6 H BUN 6 L Creatinine 0.5 L Albumin 2.9 L
--- NOTE | 2023-01-31 03:45 | W.OBCONSULT ---
Date of service: 01/31/23 Time of Service: 03:45 Assessment and Plan Assessment and plan (1) Prolonged rupture of membranes: Status: Acute Assessment and plan: Rupture of membranes greater than 24 hours. Antibiotics started. (2) Arrested labor: Status: Acute Assessment and plan: Arrest of cervical dilation at 5 cm. Risk benefits and alternatives of delivery discussed with patient full informed consent obtained. We will proceed to the OR for primary section. History of Present Illness History of Present Illness Chief Complaint: Labor arrest Narrative: Kindly asked to see in consultation this 32-year-old primigravida managed by the midwives who presented in early labor with spontaneous rupture of membranes at 1:30 AM on 01/30/2023. She had Pitocin augmentation of her labor and an epidural for pain control, however did not progress beyond 5 cm and tachycardia at that point. She had Pitocin discontinued, IVFluid bolus started and daily I was called to evaluate for surgical delivery. Risk benefits alternatives of delivery were discussed in full informed consent was obtained. Consults Consult date: 01/31/23 Requesting physician: Shaneka Kruse Review of Systems Constitutional Constitutional: Reports system reviewed and no additional complaints, except as documented Eyes Eyes: Reports system reviewed and no additional complaints, except as documented Cardiovascular Cardiovascular: Reports system reviewed and no additional complaints, except as documented Respiratory Respiratory: Reports system reviewed and no additional complaints, except as documented Gastrointestinal Gastrointestinal: Reports system reviewed and no additional complaints, except as documented Psychiatric Psychiatric: Reports system reviewed and no additional complaints, except as documented PFSH All Active Problems (Updated 01/31/23 @ 03:48 by Marsha Saldivar DO) Arrested labor (Acute) Prolonged rupture of membranes (Acute) Spontaneous onset of labor (Acute) Stage 1 hypertension (Acute) (Acute) Medical History (Updated 01/31/23 @ 03:48 by Marsha Saldivar DO) Positive test Family History (Updated 07/04/22 @ 10:50 by Shaneka Blount CNM) Father Hyperlipidemia Hypertension Mother Hyperlipidemia Paternal Grandmother Heart disease Hypertension Paternal Uncle Heart disease Hypertension Paternal Aunt Heart disease Hypertension Paternal Grandfather Cancer stomach cancer Social History (Updated 07/04/22 @ 10:53 by Shaneka Blount CNM) Smoking/Tobacco Use Status: Never Second Hand Exposure: No Smoking risk assessment performed?: Yes Alcohol Intake: former Adopted: No Foster care: No Household members: spouse Housing: house Communication Needs: None Do you need help understanding health information?: Never current occupation: homemaker Pets and animals: Yes ([employer], [employer]) Sexually active: Yes Do you think of yourself as: straight/heterosexual Current gender identity: female History History 1 Para 0 Hx # Term Pregnancies 0 Multiple births 0 Hx # Pregnancies 0 Ectopic pregnancies 0 AB induced 0 Hx Number of Living Children 0 AB spontaneous 0 Exam Const General: cooperative, healthy appearing, comfortable and no acute distress Nutritional Appearance: average body habitus Neck Neck: normal visual inspection and supple Resp Effort & Inspection: normal respiratory effort Auscultation: clear to auscultation bilaterally Cardio Jugular venous pressure: no JVD Rate: regular rate Rhythm: regular rhythm Skin General skin exam: no rashes or lesions noted Results Last Vital Signs Temp 99.4 F 01/31/23 02:29 Pulse 105 H 01/31/23 03:27 Resp 16 01/30/23 18:00 BP 125/73 01/31/23 03:27 Pulse Ox 98 01/30/23 19:29 Labs 01/30/23 10:05 01/30/23 10:05 Labs: Laboratory Results - last 24 hr 01/30/23 01/30/23 01/30/23 09:30 09:50 10:05 WBC 18.91 H RBC 3.99 Hgb 13.3 Hct 37.5 MCV 94 MCH 33.3 H MCHC 35.5 RDW 13.0 Plt Count 253 MPV 10.2 Sodium Potassium Chloride Carbon Dioxide Anion Gap BUN Creatinine Est GFR (CKD-EPI 2020) Glucose Calcium Total Bilirubin AST ALT Alkaline Phosphatase Total Protein Albumin Membranes Rupture Positive COVID-19 Source Nasal/Nares SARS-CoV-2 (PCR) Negative Patient ABO/Rh Antibody Screen 01/30/23 01/30/23 10:05 10:05 WBC RBC Hgb Hct MCV MCH MCHC RDW Plt Count MPV Sodium 136 Potassium 3.8 Chloride 103 Carbon Dioxide 20.4 L Anion Gap 12.6 H BUN 6 L Creatinine 0.5 L Est GFR (CKD-EPI 2020) 126.93 Glucose 92 Calcium 8.9 Total Bilirubin 0.4 AST 19 ALT 21 Alkaline Phosphatase 116 Total Protein 6.9 Albumin 2.9 L Membranes Rupture COVID-19 Source SARS-CoV-2 (PCR) Patient ABO/Rh O Positive Antibody Screen NEGATIVE
[2023-01-31] MEDS: Sodium Citrate 30 ML CUP PO (03:58)
[2023-01-31] MEDS: Azithromycin 500 MG VIAL (04:28)
[2023-01-31] MEDS: AZITHROMYCIN 500 MG in Normal Saline 250 ML 250 MG IVPB (04:29)
[2023-01-31] MEDS: Bupivacaine 0.25% Pres-Free 30 ML VIAL (04:30)
--- NOTE | 2023-01-31 05:00 | PLAC_PTH ---
PATIENT: Svetlana Nowak LOC: OBS U#:[id number] AGE/SX: 32/F ROOM: OBS.304 RE01/30/[address]: Shaneka Kruse : 1990 BED: A DIS: 02/02/2023 SPEC #: [id number] RECD: 01/31/23 12:22 STATUS: ABHIJIT REQ #: [id number] ELIZA: 01/31/23 05:[address]: Shaneka Kruse DEPT: Surgical Specimen RECD BY: Ines Snyder ENTERED: 01/31/23 12:22 SP TYPE: PLAC OTHR DR: Unknown,Unknown Tissues: 1 - PLACENTA (3RD TRIMESTER) Procedures: GROSS AND MICRO LEVEL 5 Comments: [id number]
--- NOTE | 2023-01-31 05:29 | W.PM.OBCSECT ---
Date of service: 01/31/23 Time of Service: 05:29 Operative Note Operative Note Delivery Method: Unscheduled STAT: No and Primary [id number]>37 Weeks: Yes DATE OF PROCEDURE: 01/31/23 PRE-OP DIAGNOSES: Term . Stage I hypertension. PROM. Labor arrest Persistent occiput transverse. Bilobate placenta with implantation in the placental bridge. Moderate uterine atony responded to oxytotic medication including, IV Pitocin, intrauterine Pitocin, Hemabate x1, misoprostol 600 mcg sublingual PROCEDURE: Primary low transverse section SURGEON: Marsha Saldivar Communication Lecturer: Shaneka Kruse Anesthesia: local and spinal Estimated blood loss (mL): 800 Pathology: other (Placenta for examination) Complications: None Patient was transported to: floor Patient's condition: stable Indications: Term , spontaneous rupture of membranes, prolonged times greater than 24 hours. Labor arrest at 5 cm Findings: Delivery of a viable female infant from the occiput transverse position. Normal-appearing tubes, ovaries, uterus. Bilobate placenta with cord implantation in the placental bridge between the 2 lobes Procedure Description: After full informed consent was obtained, patient was taken the operating suite with an IV running. She had a Garcia catheter that was previously inserted. Pneumatic compression stockings were placed for DVT prophylaxis. Her previously placed epidural was removed and replaced with spinal analgesia. She was then placed in the dorsal supine position with a leftward tilt and prepped and draped in the usual sterile fashion including a vaginal preparation. Due to her prolonged rupture of membranes and mild tachycardia, she did receive ampicillin 2 g along with gentamicin preprocedure. 1 dose of Zithromax, 500 mg was also added. At this point a Pfannenstiel skin incision was made and carried down to the underlying fascia. The fascia was nicked in the midline and fascial incision extended laterally. The rectus muscles were identified and in the midline. The peritoneum identified tented up and entered sharply and the peritoneal incision was extended superiorly and inferiorly. At this point the bladder blade was inserted and the vesicouterine peritoneum identified tented up and entered sharply creating a bladder flap. Bladder blade was replaced. A low transverse uterine incision was made with a scalpel and extended bluntly laterally. The vertex was noted to be in the occiput transverse position and delivered through the incision. There was no evidence of nuchal cord. Shoulders followed with relative ease. Three-vessel cord was noted clamped x2 and cut and the infant was handed off to the waiting casualty insurance claim adjuster. A segment of cord was held on reserve for determination of Apgars which were normal and no cord gases were sent. Cord blood was sent to the lab as well. The placenta was manually expressed from the uterus and the uterus exteriorized. Uterus was cleared of all clot and debris. With relative uterine atony, patient received IV Pitocin, 10 units of Pitocin IM x1. 1 dose of Hemabate IM, and 600 mcg of misoprostol sublingually. With vigorous uterine massage the uterus began to firm. The uterine incision was then closed in 2 layers of 0 Monocryl suture first layer being running locked second layer being imbricating. The uterus was then returned to the abdomen and uterine incision inspected and found to be hemostatic. The abdomen was then irrigated with copious amounts of normal saline. Fascial incision was closed using 0 Vicryl suture in a running fashion. Subcutaneous tissue irrigated with copious months of normal saline. Subcu space closed with 3-0 Vicryl in a simple interrupted fashion and the skin edge reapproximated with 4-0 undyed Monocryl in a subcuticular fashion. Steri-Strips and sterile dressing were placed. The uterus was firm and 2 cm below the umbilicus at completion of her procedure. She was taken back to the center in stable condition with a Garcia catheter draining slightly pink-tinged urine. As of note, urine was slightly pink-tinged at the onset of her surgical procedure. EBL: 800 mL Fluids: Crystalloid per anesthesia Complications: None apparent Findings: Delivery of a viable female infant from the occiput transverse position. Normal-appearing tubes, ovaries, uterus. Pathology: Placenta for examination
--- NOTE | 2023-01-31 06:12 | W.PM.OBPNV1 ---
Date of service: 01/31/23 Time of Service: 06:12 Assessment and Plan Assessment and plan (1) Fever: Status: Acute Assessment and plan: Patient is febrile postop. Will add Ancef, 2 grams IV every 6 hours for 24 hours. Continue to monitor clinically. Subjective Subjective Interval history: Patient is febrile , though did receive both misoprostol and Hemabate. In light of her prolonged rupture, we will maintain Exam Physical Exam Vital signs: Temp Pulse Resp BP Pulse Ox 103 F H 122 H 18 124/63 100 01/31/23 05:55 01/31/23 05:55 01/31/23 05:55 01/31/23 05:55 01/31/23 05:55 Results Hemoglobin/Hematocrit: Hgb 13.3 g/dL (11.2-15.7) 01/30/23 10:05 Hct 37.5 % (36.0-46.0) 01/30/23 10:05 Abnormal Lab Findings: Abnormal Labs 01/30/23 01/30/23 10:05 10:05 WBC 18.91 H MCH 33.3 H Carbon Dioxide 20.4 L Anion Gap 12.6 H BUN 6 L Creatinine 0.5 L Albumin 2.9 L
--- NOTE | 2023-01-31 06:59 | W.ANESPOSTOP ---
Postoperative Evaluation Date, Time and Location Date Performed: 01/31/23 Time Performed: 06:59 Patient Location: Obstetrics Vital Signs Most Recent Imported Vital Signs: Most Recent Vital Signs Temp Pulse Resp BP Pulse Ox 39.4 C H 121 H 18 129/81 100 01/31/23 06:11 01/31/23 06:11 01/31/23 06:11 01/31/23 06:11 01/31/23 06:11 Assessment Mental Status: Awake (Alert & Oriented to Patient Baseline) Airway and Respiratory Function: Patent airway with normal (patient baseline) respiratory exam Cardiovascular Function: Hemodynamically Stable Hydration Status: Adequately Hydrated Nausea & Vomiting: No Nausea or Vomiting Pain: Pain is tolerable per patient Peripheral Nerve Block: Regional nerve block not resolved at time of post operative discharge (Spinal appropriately resolving, Epidural catheter removed with tip intact prior to spinal. )
[2023-01-31] MEDS: ceFAZolin 2,000 MG in Normal Saline 100 ML 200 MG IVPB (07:11)
[2023-01-31] MEDS: Ketorolac 30 MG/ML VIAL 15 MG IVP ×3 (07:11→19:43)
[2023-01-31] MEDS: Lactated Ringers 1,000 ML 120 ML IV (13:44)
[2023-01-31] MEDS: ceFAZolin 2 GM/50 ML BAG IVPB ×2 (14:08→19:42)
[2023-02-01] MEDS: ceFAZolin 2 GM/50 ML BAG IVPB (01:34)
[2023-02-01] MEDS: Ketorolac 30 MG/ML VIAL 15 MG IVP (01:34)
[2023-02-01 06:44] VITALS: BP 119/72; PULSE 99; TEMP 36.8
[2023-02-01 06:58] LABS: Abs Immature Grans 0.16 10^3/uL (0.0-0.06); Absolute Basophil Count 0.04 10^3/uL (0.0-0.2); Absolute Neutrophil Count 11.35 10^3/uL (1.2-6.7); Basophils % 0.3; Eosinophils % 0.7; HCT 27.1 % (36.0-46.0); HGB 9.6 g/dL (11.2-15.7); Immature Grans % 1.1; Lymphocytes % 10.4; MCH 34.7 pg (27.0-33.0); MCHC 35.4 % (32.0-36.0); MCV 98 fL (80-95); Neutrophils % 78.5; Platelet Count 167 10^3/uL (130-400); RBC 2.77 10^6/uL (3.93-5.22); RDW 13.3 % (11.7-14.6); RDW-SD 47.3 fL; WBC 14.46 10^3/uL (4.4-10.8)
[2023-02-01] MEDS: Acetaminophen 325 MG TAB 650 MG PO ×2 (10:57→21:57)
[2023-02-01] MEDS: Ibuprofen 600 MG TAB PO ×2 (10:58→21:58)
[2023-02-01 16:07] VITALS: BP 126/87; PULSE 84; RESP 16; TEMP 36.6; O2SAT 99
[2023-02-01 20:05] VITALS: BP 123/75; PULSE 84; RESP 18; TEMP 36.7
--- NOTE | 2023-02-01 20:13 | OBPPV_ITS ---
Date of service: 02/01/23 Time of Service: 20:13 Assessment and Plan Assessment and plan (1) Status post primary low transverse section: Status: Acute Assessment and plan: POD1 pLTCS for arrest of descent. Pt will begin pumping breasts today and continue to place on nipple throughout the day. I counseled her to feel comfortable with taking Percoce if needed to help her care for herself and her infant. Subjective Subjective Interval history: Pt seen earlier in the day. Uncomfortable but reluctant to take narcotics along with NSAIDS. Patient comments: Incisional pain, Tolerating diet and Bowel Movement (yesterday after receiving prostaglandins for PP uterine bleeding) Patient's Mood: Good. [place] baby status: Doing well, Supplemental feeding going well, Rooming in and Strong Bonding Observed [place] feeding status: Pumping and bottle feeding Narrative: Pt having difficulty with latching effectively. OK with supplementing with formula Exam Physical Exam Vital signs: Temp Pulse Resp BP Pulse Ox 97.9 F 84 16 126/87 99 02/01/23 16:07 02/01/23 16:07 02/01/23 16:07 02/01/23 16:07 02/01/23 16:07 Vital Signs Reviewed: Yes Constitutional Constitutional: no acute distress Comments: Not much sleep last night. Feeling OK. Neck Exam Neck Exam: Normal Respiratory Exam Respiratory Exam: Normal Cardiovascular Exam Cardiovascular Exam: Normal Abdominal Exam Comments: dressing clean dry and intact. Original dressing was replaced yesterday after pt showered Fundal Exam Fundus: Below Umbilicus and Firm Rectal Exam Rectal Exam: Not Done Extremities Exam Extremity Exam: Normal, Edema (+1 non-pitting pre tibial edema) and Warm to Touch Back/Spine/Pelvis Exam Back Exam: Not Done Skin Exam Skin Exam: Normal Neurological Exam Neurological Exam: Normal Psychiatric Exam Psychiatric Exam: Normal Results Hemoglobin/Hematocrit: Hgb 9.6 g/dL (11.2-15.7) L D 02/01/23 06:50 Hct 27.1 % (36.0-46.0) L 02/01/23 06:50 Abnormal Lab Findings: Abnormal Labs 01/30/23 01/30/23 02/01/23 10:05 10:05 06:50 WBC 18.91 H 14.46 H RBC 2.77 L Hgb 9.6 L D Hct 27.1 L MCV 98 H D MCH 33.3 H 34.7 H Absolute Neutrophils 11.35 H Absolute Monocytes 1.30 H Carbon Dioxide 20.4 L Anion Gap 12.6 H BUN 6 L Creatinine 0.5 L Albumin 2.9 L
--- NOTE | 2023-02-02 09:53 | W.PM.OBDISCH ---
Date of service: 02/02/23 Time of Service: 09:53 DS: Diagnosis Discharge Diagnosis (1) Status post primary low transverse section: Status: Acute (2) Arrested labor: Status: Acute Discharge Plan Disposition Patient Disposition: Home Condition: Improving Discharge Details Reason For Visit: Early Labor Admit Date/Time: 01/30/23 09:41 Admit Provider: Shaneka Kruse Attending Provider: Shaneka Kruse Primary Care Provider: Unknown,Unknown Hospital Course Hospital Course: Patient has been cared for by the [facility] service during her . She presented at 40 W0D EGA and spontaneous labor. She experienced an arrest of dilation and descent and underwent a pLTCS morning of 01/31/2023. She had a viable female who will be called Lily. Postop course was uncomplicated she was discharged home on postop day 2 successfully breast-feeding the infant required some supplementation with formula secondary to weight loss. The plan is to have her follow-up with Dr. Saldivar in 2 and 6 weeks. She is interested in using IUD for contraception. She was instructed to avoid heavy lifting over 10 pounds no driving for 2 weeks she was given a prescription for Percocet 5/325 number 5 tablets dispensed in the event of pain not relieved by acetaminophen or ibuprofen. Home Meds and New Rx's Prescriptions: No Action prenat.vits,blas,nnh-ffpl-imazj Tablet 1 tab PO DAILY famotidine [Pepcid AC] 10 mg tablet 10 mg PO DAILY PRN aspirin 81 mg tablet,delayed release (DR/EC) 81 mg PO DAILY Patient Comments: 07/31/22- pt reports dose as 81 mg alternating with 162 mg. oxycodone-acetaminophen [Percocet] 5-325 mg tablet 1 tab PO Q6H MDD 4 PRN (Reason: pain) Qty: 5 0RF Discharge Instructions Additional Instructions: Prescription for Percocet 5/325 mg has been called into [facility] in [place]. Take 1 tablet every 6 hours as needed for pain continue to take ibuprofen every 6 hours as needed for pain avoid taking the acetaminophen and the Percocet together. Call the office on 02/04/2023 to arrange a 2-week postoperative visit with Dr. Saldivar and a 6-week postop visit with the midwives. Stand Alone Forms: BC Instructions, BC Discharge Instruc Activity:: Activity as Tolerated Equipment/Supplies:: No Equipment Needed Diet:: As Tolerated Discharge Orders Discharge Orders: Discharge Order (Routine); Ordered 02/02/23 Ordered By: Felipa Teixeira OB:DS Summary Summary Delivery Method: Unscheduled Episiotomy Description: None Laceration Description: None Laceration Extension: N/A complications OB DS: none Contraception Discussed Contraception Discussed: Yes Contraceptive Plan: IUD (Had used Mirena IUD in the past with good results), [place] Infant Gender-Baby A: Female weight: 7 lb 15.692 oz Disposition of Baby A: Home Gender-Baby B: Female Status at Discharge Functional status at discharge: independent ambulation Overall status at discharge: patient is progressing back to baseline Mental Status: mental status grossly normal Speech and Movement: speech and movement normal Mood: congruent mood Affect: normal affect Time Spent with Patient providing and/or coordinating discharge services: Less than 30 minutes Exam Physical Exam Vital signs: Temp Pulse Resp BP Pulse Ox 98.1 F 84 18 123/75 99 02/01/23 20:05 02/01/23 20:05 02/01/23 20:05 02/01/23 20:05 02/01/23 16:07 Vital Signs Reviewed: Yes Constitutional Constitutional: no acute distress (Has not required narcotics for pain relief) Neck Exam Neck Exam: Normal Respiratory Exam Respiratory Exam: Normal Cardiovascular Exam Cardiovascular Exam: Normal Abdominal Exam Abdomen: Tender (Incision clean dry and intact. Steri-Strips in place.) Fundal Exam Fundus: Below Umbilicus and Firm Rectal Exam Rectal Exam: Not Done Extremities Exam Extremity Exam: Normal (Pretibial lower edema nonpitting 1+) Back/Spine/Pelvis Exam Back Exam: Normal Skin Exam Skin Exam: Normal Neurological Exam Neurological Exam: Normal Psychiatric Exam Psychiatric Exam: Normal PFSH All Active Problems (Updated 01/31/23 @ 06:13 by Marsha Saldivar DO) Fever (Acute) Status post primary low transverse section (Acute) Arrested labor (Acute) Prolonged rupture of membranes (Acute) Spontaneous onset of labor (Acute) Stage 1 hypertension (Acute) (Acute) Medical History (Updated 01/31/23 @ 06:13 by Marsha Saldivar DO) Positive test Family History (Updated 07/04/22 @ 10:50 by Shaneka Blount CNM) Father Hyperlipidemia Hypertension Mother Hyperlipidemia Paternal Grandmother Heart disease Hypertension Paternal Uncle Heart disease Hypertension Paternal Aunt Heart disease Hypertension Paternal Grandfather Cancer stomach cancer Social History (Updated 02/02/23 @ 09:57 by Felipa Teixeira MD) Smoking/Tobacco Use Status: Never Second Hand Exposure: No Smoking risk assessment performed?: Yes Alcohol Intake: former Adopted: No Foster care: No Household members: spouse and other Details: S-Adal, Kisha-Lily Housing: house Number of Children: 1 Communication Needs: None Do you need help understanding health information?: Never current occupation: homemaker Pets and animals: Yes (Missingames, Key) Sexually active: Yes Do you think of yourself as: straight/heterosexual Current gender identity: female History History 1 Para 0 Hx # Term Pregnancies 0 Multiple births 0 Hx # Pregnancies 0 Ectopic pregnancies 0 AB induced 0 Hx Number of Living Children 0 AB spontaneous 0 Past Pregnancies Del. Date GA/Weeks # Preg Succ Route Wgt Sex Labor Lgth Anesthesia Location Prov [facility] 01/31/23 40 No Yes Female darlene/balbina Delivery Date: 01/31/23 Last Updated by: Felipa Teixeira MD arrest of labor. Lily DS: Data Vitals/I&O Vitals and I&O: Vital Signs Temperature 98.1 F 02/01/23 20:05 Pulse 84 02/01/23 20:05 Pulse Rhythm Regular 02/02/23 08:19 Respiratory Rate 18 02/01/23 20:05 Respiratory Depth Normal 02/02/23 08:19 Blood Pressure 123/75 02/01/23 20:05 Blood Pressure Mean 91 02/01/23 20:05 Pulse Oximetry 99 02/01/23 16:07 Pain Level 3 02/01/23 21:57 Comment MD aware of temp. 01/31/23 05:55 Intake & Output 02/01/23 02/01/23 02/02/23 11:59 23:59 11:59 Intake Total 50 / 290 240 / 290 Balance 50 / 290 240 / 290 Intake: IV 50 / 50 Oral 240 / 240
[2023-02-02] MEDS: Ibuprofen 600 MG TAB PO (10:35)
[2023-02-02] MEDS: oxyCODONE 5 mg/Acetaminophen 325 mg TAB PO (10:36)
[2023-02-02 10:37] VITALS: BP 130/88; PULSE 98; RESP 18; TEMP 36.9; O2SAT 99
== END 2023-02-02 11:00 | disposition home or self-care (01) | DRG 787 ==
PROVIDERS: Obstetrics & Gynecology; Admitting Provider Advanced Practice Midwife; Visit Provider Advanced Practice Midwife
PROC: 10D00Z1 Extraction of Products of Conception, Low, Open Approach (ICD-10-PCS; CPT 59514; principal; 2023-01-31 04:00)
DX: O42.02 Full-term premature rupture of membranes, onset of labor within 24 hours of rupture (principal); O10.92 Unspecified pre-existing hypertension complicating childbirth; O75.2 Pyrexia during labor, not elsewhere classified; Z3A.40 40 weeks gestation of pregnancy; Z37.0 Single live birth; O62.1 Secondary uterine inertia; O76 Abnormality in fetal heart rate and rhythm complicating labor and delivery; O75.89 Other specified complications of labor and delivery; O43.193 Other malformation of placenta, third trimester
CPT/HCPCS: 59514; 36415; 80053; 84112; 85027; 86850; 86900; 86901; 87635; 85025; 88307; J0131; J0290; J0456; J0690; J1580; J1885; J2370; J2405; J2590; J3010

== ENCOUNTER 2023-09-18 13:04 | Outpatient (CLI) | payer BC, SELFPAY ==
[2023-09-18 14:00] LABS: TSH (W/Ref FT4) 3.32 uIU/mL (0.36-3.74)
== END 2023-09-18 13:05 | disposition home or self-care (01) ==
LOC: LBO 13:07
PROVIDERS: Visit Provider Obstetrics & Gynecology
DX: F32.A Depression, unspecified (principal)
CPT/HCPCS: 36415; 84443

== ENCOUNTER → 2024-02-04 12:53 | Outpatient (CLI) | payer BC, SELFPAY ==
--- NOTE | 2024-02-04 11:15 | DI.RAD_ITS ---
Exam(s) XR CHEST 2V PA LATERAL EXAM: XR CHEST 2V PA LATERAL CLINICAL HISTORY: pain with deep breath right,R07.81 Pleurodynia, Z20.89 contact with and TECHNIQUE: 2D digital imaging was performed. Two views. COMPARISON: No exams were available for comparison FINDINGS: HEART: Normal size. Aorta: Not dilated. PULMONARY VASCULATURE: Normal. LUNGS: Clear. PLEURAL SPACE: No pleural effusion or pneumothorax. BONE:Unremarkable for age. Soft tissues: Unremarkable. IMPRESSION: No acute abnormality. DATA REPOSITORY: RADIATION DOSE DELIVERED:
== END ==
PROVIDERS: PCP Nurse Practitioner; Visit Provider Nurse Practitioner
DX: R07.81 Pleurodynia (principal); Z20.89 Contact with and (suspected) exposure to other communicable diseases
CPT/HCPCS: 71046

== ENCOUNTER 2024-12-31 03:16 | Outpatient (CLI) | payer BC, SELFPAY ==
[2024-12-31 10:55] LABS: Panorama Kit Sent via Fed Ex
[2024-12-31 11:05] LABS: Abs Immature Grans 0.02 10^3/uL (0.0-0.06); Absolute Basophil Count 0.03 10^3/uL (0.0-0.2); Absolute Eosinophil Count 0.06 10^3/uL (0.0-0.7); Absolute Lymphocyte Count 1.92 10^3/uL (1.2-3.4); Absolute Monocyte Count 0.75 10^3/uL (0.1-0.8); Absolute Neutrophil Count 4.44 10^3/uL (1.2-6.7); Basophils % 0.4 %; Eosinophils % 0.8 %; HCT 35.5 % (36.0-46.0); HGB 12.1 g/dL (11.2-15.7); Immature Grans % 0.3 %; Lymphocytes % 26.6 %; MCH 33.2 pg (27.0-33.0); MCHC 34.1 % (32.0-36.0); MCV 97 fL (80-95); MPV 10.5 fL (8.0-11.0); Monocytes % 10.4 %; Neutrophils % 61.5 %; Platelet Count 200 10^3/uL (130-400); RBC 3.65 10^6/uL (3.93-5.22); RDW 12.3 % (11.7-14.6); RDW-SD 44.1 fL; WBC 7.22 10^3/uL (4.4-10.8)
[2024-12-31 22:46] LABS: Hepatitis B Surface Ag Negative (Negative)
[2024-12-31 23:14] LABS: Hepatitis C Ab w Rflx HCV PCR Negative (Negative)
[2025-01-01 00:20] LABS: HIV-1/2 Ag & Ab Screen Negative (Negative)
[2025-01-01 09:19] LABS: Varicella IgG Antibody Positive (See Note)
[2025-01-01 09:26] LABS: Rubella IgG Ab (UVM) Positive (See Note)
[2025-01-03 13:37] LABS: Syphilis IgG w/Reflex Nonreactive (Nonreactive)
[2025-01-05 10:35] LABS: Specimen WB Whole Blood
[2025-01-18 15:49] LABS: Result Summary NEGATIVE; Specimen WB Whole Blood
== END 2024-12-31 03:17 | disposition home or self-care (01) ==
LOC: LBO 03:16
PROVIDERS: PCP Nurse Practitioner; Visit Provider Advanced Practice Midwife
DX: Z34.91 Encounter for supervision of normal pregnancy, unspecified, first trimester (principal)
CPT/HCPCS: 36415; 81220; 81222; 81329; 86787; 86803; 86850; 86900; 86901; 87340; 87389; 85025; 86762; 86780

== ENCOUNTER 2024-12-31 10:46 | Outpatient (REF) | payer BC, SELFPAY ==
[2024-12-31 16:48] LABS: COMMENT (LAB VIEW ONLY) 70.84 mg/dL; PROTEIN 13.6 mg/dL; Prot/Crea Ur Ratio 0.19
[2025-01-04 12:41] LABS: Chlamydia Result Negative (Negative); GC Result Negative (Negative)
== END 2024-12-31 10:47 | disposition home or self-care (01) ==
LOC: LBN 10:46
PROVIDERS: PCP Nurse Practitioner; Visit Provider Advanced Practice Midwife
DX: Z34.91 Encounter for supervision of normal pregnancy, unspecified, first trimester (principal); I10 Essential (primary) hypertension
CPT/HCPCS: 87491; 87591; 82565; 84156; 87086

== ENCOUNTER 2025-04-20 13:52 | Outpatient (CLI) | payer BC, SELFPAY ==
[2025-04-20 14:06] LABS: HCT 34.5 % (36.0-46.0); HGB 11.8 g/dL (11.2-15.7); MCH 33.2 pg (27.0-33.0); MCHC 34.2 % (32.0-36.0); MCV 97 fL (80-95); MPV 10.3 fL (8.0-11.0); Platelet Count 219 10^3/uL (130-400); RBC 3.55 10^6/uL (3.93-5.22); RDW 12.8 % (11.7-14.6); RDW-SD 45.3 fL; WBC 11.74 10^3/uL (4.4-10.8)
[2025-04-20 14:27] LABS: Glucose,1 Hr (Glucola) 121 mg/dL (80-140)
== END 2025-04-20 13:53 | disposition home or self-care (01) ==
LOC: LBO 13:52
PROVIDERS: PCP Nurse Practitioner; Visit Provider Obstetrics & Gynecology
DX: Z34.83 Encounter for supervision of other normal pregnancy, third trimester (principal); Z34.93 Encounter for supervision of normal pregnancy, unspecified, third trimester
CPT/HCPCS: 36415; 82950; 85027

== ENCOUNTER 2025-06-28 14:42 | Outpatient (REF) | payer BC, SELFPAY | END 2025-06-28 14:43 | disposition home or self-care (01) | LOC: LBN 14:42 | PROVIDERS: PCP Nurse Practitioner; Visit Provider Obstetrics & Gynecology | DX: Z34.83 Encounter for supervision of other normal pregnancy, third trimester (principal) | CPT/HCPCS: 87081 ==

== ENCOUNTER 2025-07-20 15:57 | Outpatient (CLI) | payer BC, SELFPAY ==
[2025-07-20 11:33] LABS: Abs Immature Grans 0.15 10^3/uL (0.0-0.06); HCT 36.0 % (36.0-46.0); HGB 12.2 g/dL (11.2-15.7); Immature Grans % 1.3 %; MCH 32.2 pg (27.0-33.0); MCHC 33.9 % (32.0-36.0); MCV 95 fL (80-95); MPV 11.0 fL (8.0-11.0); Platelet Count 228 10^3/uL (130-400); RBC 3.79 10^6/uL (3.93-5.22); RDW 13.0 % (11.7-14.6); RDW-SD 45.1 fL; WBC 11.27 10^3/uL (4.4-10.8)
== END 2025-07-20 15:58 | disposition home or self-care (01) ==
LOC: LBO 15:57
PROVIDERS: PCP Nurse Practitioner; Visit Provider Obstetrics & Gynecology
DX: Z34.80 Encounter for supervision of other normal pregnancy, unspecified trimester (principal); Z98.891 History of uterine scar from previous surgery
CPT/HCPCS: 36415; 86850; 86900; 86901; 85025

== ENCOUNTER 2025-07-21 06:00 | Inpatient (IN) | payer BC, SELFPAY ==
[2025-07-21] VITALS (68 sets, daily range): BP systolic 110–133; BP diastolic 68–84; PULSE 61–94; RESP 16–17; TEMP 36.6–37.3; O2SAT 83–100; BMI 34.0
[2025-07-21] MEDS: Lactated Ringers 1,000 ML 150 ML IV (06:56)
[2025-07-21] MEDS: Azithromycin 500 MG VIAL (07:07)
--- NOTE | 2025-07-21 07:24 | ANES.PREOP_ITS ---
General Info Date of Service Date Performed: 07/18/25 Height: 5 ft 2 in Weight: 84.368 kg Body Mass Index (BMI): 34.0 Surgical Procedure: Operation Date: 07/21/25 07:40 Proposed Procedure Side Surgeon p Repeat Section, Bi-Lat Salpingectomy Possible Hysterectomy Marsha Saldivar DO Actual Procedure Side Surgeon p Repeat Section, Bi-Lat Salpingectomy Possible Hysterectomy Not Applicable Marsha Saldivar DO Pre-Op Diagnosis Post-Op Diagnosis desired repeat section desired sterilization desired repeat section desired sterilization Meds Allergies and Home Medications Allergies Allergy/AdvReac Type Severity Reaction Status Date / Time No Known Allergies Allergy Verified 07/20/25 11:56 Home Medication ?Medication ?Instructions ?Recorded jh-tyc-gtgyn 180 mcg-om3 32.5 1 tab PO DAILY #90 tabs 11/26/24 kd-yaj-mey-other dt4e-xxth chew tablet ( Gummies (DHA-EPA)) citalopram 40 mg tablet 40 mg PO DAILY #90 tabs 05/19 12/12 Current Visit Medications: Current Medications Generic Name Dose Route Start Last Admin Trade Name Freq PRN Reason Stop Dose Admin Citric Acid/Sodium Citrate 30 ml 07/21/25 07:00 Sodium Citrate 30 Ml Cup PO PREOP VAN Cefazolin Sodium/Dextrose 2 gm in 50 mls @ 100 mls/hr 07/21/25 06:15 Ancef Duplex IVPB PREOP VAN Azithromycin 500 mg/ Sodium 250 mls @ 250 mls/hr 07/21/25 06:15 Chloride IVPB PREOP VAN Ringer's Solution 1,000 mls @ 200 mls/hr 07/21/25 06:15 07/21/25 06:56 IV 150 mls/hr INFUSION VAN Administration IV Miscellaneous Supplies 1 each 07/21/25 06:15 Iv Access IV DIRECTED VAN Sodium Chloride 0 ml 07/21/25 06:12 Normal Saline Flush 10 Ml Syr IVP PRN PRN Sodium Chloride 0 ml 07/21/25 08:30 Normal Saline Flush 10 Ml Syr IVP BID VAN Sodium Chloride 0 ml 07/21/25 06:12 Normal Saline 10 Ml Vial IJ DIRECTED PRN PFSH Active Problems Active Problems: Problem Status Onset Code Group B Streptococcus carrier, +RV culture, currently Acute O99.820 Elderly multigravida Acute O09.529 Hx of section Chronic Z98.891 Normal in multigravida Acute Z34.80 Depressed Chronic F32.A Stage 1 hypertension Acute I10 Surgical History Surgical History Status post primary low transverse section Tobacco Smoking/Tobacco Use Status: Former Tobacco Use Smokeless tobacco user: other Passive smoking exposure: No Second hand exposure: No Alcohol Alcohol Intake: never Substance Use Substance use: Never Substance use type: does not use Prental History History 2 Para 1 Hx # Term Pregnancies 1 Multiple births 0 Hx # Pregnancies 0 Ectopic pregnancies 0 AB induced 0 Hx Number of Living Children 1 AB spontaneous 0 Past Pregnancies Del. Date GA/Weeks # Preg Succ Route Wgt Sex Labor Lgth [facility]esth [facility]23 40 No Yes 3458.642 g Female j blanquita/balbina Delivery Date: 01/31/23 Last Updated by: Felipa Teixeira MD arrest of labor. [place] Vital Signs and Lab Results Vital Signs Most Recent Vital Signs in EMR: Most Recent Vital Signs Temp Pulse Resp BP Pulse Ox 36.6 C 94 H 16 127/81 99 07/21/25 06:38 07/21/25 07:03 07/21/25 06:38 07/21/25 07:03 07/21/25 06:38 Lab Results Blood Type / Crossmatch: Antibody Screen NEGATIVE 07/20/25 Complete Blood Count: WBC, (4.4-10.8) 11.27 10^3/uL H 07/20/25, 11:11 RBC, (3.93-5.22) 3.79 10^6/uL L 07/20/25, 11:11 Hgb, (11.2-15.7) 12.2 g/dL 07/20/25, 11:11 Hct, (36.0-46.0) 36.0 % 07/20/25, 11:11 Plt Count, (130-400) 228 10^3/uL 07/20/25, 11:11 Anesthesia Assessment and Plan Anesthesia History Personal History: No History of Anesthesia Complications Family History: No Family History of Anesthesia Complications Exercise Tolerance Exercise Tolerance: Metabolic Equivalents>4 Cardiac & Pulmonary Exam Cardiac Exam: Normal S1/S2 Heart Sounds Pulmonary Exam: Clear Bilateral Breath Sounds Implantable Cardiac Device Does patient have a Pacemaker or an ICD?: No Airway Exam Known Difficult Airway: No Mallampati Class: 2 Mouth Opening: Normal (> 3cm) Thyromental Distance: Greater than 3 cm Neck Range of Motion: Full ROM Neck Circumference: Normal Teeth Condition: Normal Dentition ASA Classification ASA Score: ASA 2 Emergency Case?: No NPO Status NPO Status: NPO Clears >2 hours, Solids >8 hours Status Status: Not Relevant due to Medical History Anesthesia Plan Resuscitation Status: Full Code Anesthesia Technique: Spinal Anesthesia Airway Planned: Natural Airway Monitors Used: Standard Monitors
[2025-07-21] MEDS: ceFAZolin 2 GM/50 ML BAG IVPB (07:58)
[2025-07-21] MEDS: Bupivacaine 0.25% Pres-Free 30 ML VIAL (08:13)
--- NOTE | 2025-07-21 08:30 | PLAC_PTH ---
PATIENT: Svetlana Nowak LOC: OBS U#:[id number] AGE/SX: 35/F ROOM: OBS.305 RE07/21/[address]: Marsha Saldivar DO : 1990 BED: A DIS: 07/23/2025 SPEC #: [id number] RECD: 07/21/25 12:39 STATUS: ABHIJIT REQ #: [id number] ELIZA: 07/21/25 08:[address]: Marsha Saldivar DEPT: Surgical Specimen RECD BY: Ines Snyder ENTERED: 07/21/25 12:40 SP TYPE: PLAC OTHR DR: Gricelda Yu APRN Tissues: 1 - FALLOPIAN TUBE (STERILIZATION) 2 - FALLOPIAN TUBE (STERILIZATION) 3 - PLACENTA (3RD TRIMESTER) Procedures: GROSS AND MICRO LEVEL 2 GROSS AND MICRO LEVEL 5 Comments: [id number]
--- NOTE | 2025-07-21 09:06 | W.PM.OBCSECT ---
Date of service: 07/21/25 Time of Service: 09:06 Operative Note Operative Note Delivery Method: Scheduled and Repeat Previous LT Incision: Yes DATE OF PROCEDURE: 07/21/25 PRE-OP DIAGNOSES: Term , prior , undesired fertility POST-OP DIAGNOSES: same PROCEDURE: Repeat section, low transverse. Bilateral salpingectomy. Assisting Surgeon: Tisha Magana Anesthesia: local and spinal Estimated blood loss (mL): 400 Pathology: other (Placenta for examination, bilateral fallopian tubes.) Complications: None Patient was transported to: floor Patient's condition: stable Indications: Prior . Term . Undesired fertility Findings: Normal-appearing tubes, ovaries, uterus. Delivery of viable female . Procedure Description: After full informed consent was obtained, patient taken operating suite with an IV running. She was placed in the seated position and spinal anesthesia administered. She was then placed in the dorsal supine position with leftward tilt and prepped and draped in usual sterile fashion. She had pneumatic pression stockings for DVT prophylaxis. She received Ancef 2 g and Zithromax 500 mg for surgical site infection prophylaxis. She was then prepped and draped in the usual sterile fashion including abdominal and vaginal preparation. Garcia catheter was inserted for continuous bladder drainage. At this point, her spinal anesthesia was tested and found to be adequate. A timeout was held. A small incision was made through her previous Pfannenstiel scar. This was carried down to the underlying fascia which was then incised in the midline and extended laterally. The fascia was then split from the rectus muscles rectus muscle split in the midline peritoneum identified tented up and entered sharply. The peritoneal incision was then extended superiorly and inferiorly and a bladder blade was inserted. The vesicouterine peritoneum was identified tented up and entered sharply for creation of the bladder flap. The bladder was pushed well below the lower uterine segment. A transverse uterine incision was made with a scalpel and extended bluntly laterally. There is artificial rupture of membranes for clear fluid. The vertex was delivered from the direct occiput posterior position. There was no evidence of nuchal cord. Shoulders followed with ease. Delayed cord clamping was undertaken. Three-vessel cord was noted clamped x 2 and cut and the infant was handed off to the waiting surgical instrument repair specialist. At this point cord blood sample was obtained. A segment of cord was held for obtaining cord blood gases. At this point the placenta was manually expressed from the uterus and cleared of all clot and debris. The uterus was then exteriorized. The uterine incision was closed using 0 Monocryl suture in a 2 layer fashion. The first layer being running locked, second being imbricating. At this point attention was then turned to the left fallopian tube which was elevated and cautery transected. The left fallopian tube was removed and the entirety of the pedicle was noted to be hemostatic. Similar procedure was carried out on the right fallopian tube from the fimbriated end to the insertion into the uterus. Again the pedicle was noted to be hemostatic. At this point the uterus was returned to the abdomen the abdomen irrigated with copious amounts of normal saline. Uterine incision was again reinspected. There was noted to be peritoneal surface that was slightly oozy which was cautery to ligated and noted to be hemostatic. The abdomen was again irrigated with copious amounts of normal saline. Qualitative blood loss was 400 mL. At this point the fascial incision was then closed using 0 Vicryl suture in a running fashion. Subcutaneous tissue irrigated and reapproximated with simple interrupted sutures of 3-0 Vicryl stitch. Skin edge was then reapproximated with 4-0 undyed Monocryl. Steri-Strips and sterile dressing were placed. Uterus was noted to be firm and 2 cm below the umbilicus. Patient was then returned to the center in stable condition with Garcia catheter draining clear yellow urine. Quantitative blood loss: 400 mL Fluids: Crystalloid per anesthesia Complications: None apparent Findings: Delivery viable female . Normal-appearing tubes, ovaries, uterus Pathology: 1. Placenta 2. Left fallopian tube 3. Right fallopian tube. Baby weight and Apgars to be determined.
[2025-07-21] MEDS: Lactated Ringers 1,000 ML 125 ML IV (10:41)
[2025-07-21] MEDS: Ketorolac 15 MG/ML VIAL IVP ×3 (10:43→22:38)
--- NOTE | 2025-07-21 11:57 | W.ANESPOSTOP ---
Postoperative Evaluation Date, Time and Location Date Performed: 07/21/25 Time Performed: 11:57 Patient Location: Obstetrics Vital Signs Most Recent Imported Vital Signs: Most Recent Vital Signs Temp Pulse Resp BP Pulse Ox 37.0 C 81 16 118/71 100 07/21/25 11:36 07/21/25 11:54 07/21/25 11:36 07/21/25 11:36 07/21/25 11:54 Pain Score Most Recent Pain Score: Most Recent Pain Score Pain Level [Abdomen] 1 07/21/25 11:36 Pain Level 1 07/21/25 10:43 Assessment Mental Status: Awake (Alert & Oriented to Patient Baseline) Airway and Respiratory Function: Patent airway with normal (patient baseline) respiratory exam Cardiovascular Function: Hemodynamically Stable Hydration Status: Adequately Hydrated Nausea & Vomiting: No Nausea or Vomiting Pain: Pt. Denies Any Pain Peripheral Nerve Block: Patient did not receive a nerve block
[2025-07-21] MEDS: Naloxone 0.4 MG/ML VIAL IVP ×2 (19:30→20:03)
[2025-07-21] MEDS: Normal Saline Flush 10 ML SYR IVP ×3 (19:31→22:38)
[2025-07-22] MEDS: Ketorolac 15 MG/ML VIAL IVP (04:40)
[2025-07-22 05:04] LABS: Abs Immature Grans 0.09 10^3/uL (0.0-0.06); HCT 31.0 % (36.0-46.0); HGB 10.4 g/dL (11.2-15.7); Immature Grans % 0.8 %; MCH 32.5 pg (27.0-33.0); MCHC 33.5 % (32.0-36.0); MCV 97 fL (80-95); MPV 11.0 fL (8.0-11.0); Platelet Count 158 10^3/uL (130-400); RBC 3.20 10^6/uL (3.93-5.22); RDW 13.2 % (11.7-14.6); RDW-SD 47.1 fL; WBC 11.03 10^3/uL (4.4-10.8)
[2025-07-22] MEDS: Citalopram 20 MG TAB 40 MG PO (08:10)
[2025-07-22 08:34] VITALS: BP 116/77; PULSE 78; RESP 12; TEMP 37.2
--- NOTE | 2025-07-22 09:39 | OBPPV_ITS ---
Date of service: 07/22/25 Time of Service: 09:39 Assessment and Plan Assessment and plan (1) Status post repeat low transverse section: Status: Acute Assessment and plan: Postoperative day #1 status post repeat low-transverse section with bilateral sterilization. Baby did have a slow start yesterday and was observed for approximately 4 hours. Doing well now. Breast-feeding without difficulty. Would anticipate discharge home in the next 24 hours. All questions answered. (2) Sterilization: Status: Acute Subjective Subjective Interval history: Patient seen and examined this morning. Doing well. Pressure dressing removed. Mepilex placed. No further bleeding. Hemoglobin is stable. Vital signs are stable. She is breast-feeding without difficulty. [place] feeding status: Exclusively breast feeding Exam Physical Exam Vital signs: Temp Pulse Resp BP Pulse Ox 99.0 F 78 12 116/77 99 07/22/25 08:34 07/22/25 08:34 07/22/25 08:34 07/22/25 08:34 07/21/25 22:40 Vital Signs Reviewed: Yes Constitutional Constitutional: no acute distress HEENT Exam HEENT Exam: Normal Respiratory Exam Respiratory Exam: Normal Cardiovascular Exam Cardiovascular Exam: Normal Abdominal Exam Comments: Soft, nontender, Mepilex placed Fundal Exam Fundus: Below Umbilicus and Firm Extremities Exam Extremity Exam: Normal; negative Calf Tenderness Results Hemoglobin/Hematocrit: Hgb 10.4 g/dL (11.2-15.7) L 07/22/25 04:52 Hct 31.0 % (36.0-46.0) L 07/22/25 04:52 Abnormal Lab Findings: Abnormal Labs 07/22/25 04:52 WBC 11.03 H RBC 3.20 L Hgb 10.4 L Hct 31.0 L MCV 97 H Absolute Neutrophils 7.86 H Absolute Monocytes 1.07 H
[2025-07-22 16:00] VITALS: BP 127/83; PULSE 85; RESP 16; TEMP 36.6
[2025-07-22 16:36] VITALS: TEMP 36.6
[2025-07-22] MEDS: Acetaminophen 325 MG TAB 650 MG PO ×2 (16:36→22:24)
[2025-07-22 16:37] VITALS: TEMP 36.6
[2025-07-22] MEDS: Ibuprofen 600 MG TAB PO ×2 (16:37→22:24)
[2025-07-22 22:25] VITALS: BP 108/67; PULSE 73; RESP 17; TEMP 36.8; O2SAT 99
[2025-07-23 04:15] VITALS: BP 115/74; PULSE 82; RESP 17; TEMP 37.2; O2SAT 99
[2025-07-23] MEDS: Acetaminophen 325 MG TAB 650 MG PO (04:35)
[2025-07-23] MEDS: Ibuprofen 600 MG TAB PO (04:35)
[2025-07-23 08:00] VITALS: BP 123/82; PULSE 64; RESP 12; TEMP 36.9
--- NOTE | 2025-07-23 11:00 | DSE_ITS ---
Date of service: 07/23/25 Time of Service: 11:07 DS: Diagnosis Discharge Diagnosis (1) Status post repeat low transverse section: Status: Acute Asessment and Plan: POD#2 s/p scheduled RCS and salpingectomy for sterilization. Pt doing well. Reviewed reasons to call. Will return for incision check next week. Discharge Plan Disposition Patient Disposition: Home Condition: Good Discharge Details Reason For Visit: Labor Admit Date/Time: 07/21/25 06:00 Admit Provider: Marsha Saldivar Attending Provider: Marsha Saldivar Primary Care Provider: Gricelda Yu Hospital Course Hospital Course: Pt was admitted for a RCS and salpingectomy at 39wks. This was uncomplicated and she had a routine post-op course and was ready for d/c POD#2 Home Meds and New Rx's Prescriptions: New acetaminophen 325 mg Tablet 650 mg PO Q4H PRN PRNQty: 0 0RF ibuprofen 600 mg Tablet 600 mg PO Q6H PRN PRNQty: 60 0RF Continued citalopram 40 mg tablet 40 mg PO DAILY Qty: 90 2RF No Action Gummies (DHA-EPA) 180 mcg-32.5mg- 25 mg-7.5 mg tablet,chewable 1 tab PO DAILY Qty: 90 3RF Discharge Instructions Stand Alone Forms: BC Discharge Instruc Activity:: No lifting >20lbs Equipment/Supplies:: No Equipment Needed Diet:: As Tolerated Discharge Orders Discharge Orders: Discharge Order (Routine); Ordered 07/23/25 Ordered By: Cora Virk OB:DS Summary Summary Episiotomy Description: None Laceration Extension: N/A Contraception Discussed Contraception Discussed: Yes Contraceptive Plan: Tubal Ligation, [place] Infant Gender-Baby A: Female weight: 8 lb 2.866 oz Status at Discharge Functional status at discharge: independent ambulation Overall status at discharge: patient is back to baseline Mental Status: mental status grossly normal Speech and Movement: speech and movement normal Mood: congruent mood Affect: normal affect Exam Physical Exam Vital signs: Temp Pulse Resp BP Pulse Ox 98.4 F 64 12 123/82 99 07/23/25 08:00 07/23/25 08:00 07/23/25 08:00 07/23/25 08:00 07/23/25 04:15 Vital Signs Reviewed: Yes PFSH All Active Problems (Updated 07/21/25 @ 09:54 by Marsha Saldivar DO) Sterilization (Acute) Bilateral salpingectomy at time of repeat Status post repeat low transverse section (Acute) Repeat low-transverse delivery 07/21/2025 female infant [place] Group B Streptococcus carrier, +RV culture, currently (Acute) Elderly multigravida (Acute) Hx of section (Chronic) Normal in multigravida (Acute) Depressed (Chronic) Stage 1 hypertension (Acute) Surgical History Status post primary low transverse section Family History Father Hyperlipidemia Hypertension Mother Hyperlipidemia Paternal Grandmother Heart disease Hypertension Paternal Uncle Heart disease Hypertension Paternal Aunt Heart disease Hypertension Paternal Grandfather Cancer stomach cancer Social History (Updated 01/19/25 @ 10:04 by Gloria Lezama LPN) Smoking/Tobacco Use Status: Former Tobacco Use Tobacco: How many years used: 3 Smokeless tobacco user: other Second Hand Exposure: No Smoking risk assessment performed?: Yes Alcohol Intake: never Drug use: Never Substance use type: does not use Adopted: No Caregiver/Support person: No Foster care: No Household members: spouse, children and other Details: Sarah Wagner Housing: house Number of Children: 1 number of grandchildren: 0 Communication Needs: None Education Level: college Do you need help understanding health information?: Rarely current occupation: homemaker Pets and animals: Yes ([employer], Mobile System 7) Pets and animals: dog(s) Sexually active: Yes Do you think of yourself as: straight/heterosexual Current gender identity: female What is your relationship status?: How often do you talk on the phone with friends or family?: three or more times per week How often do you get together with friends or relatives?: three or more times per week Do you belong to any clubs or organized social groups?: no Panel score (0-1 are the most socially isolated patients): 2 What type of physical activity do you participate in: additional Details: Light Cardio Duration: 15-30 minutes/day Frequency: 1-2 times per week Vanesa/Episcopal: None Special vanesa needs: No Seatbelt use: always Helmet use: Yes Drive intox or ride w/intox bottom hoop driver: No Do you feel safe at home: Yes Do you feel safe in your relationship?: Yes History History 2 Para 1 Hx # Term Pregnancies 1 Multiple births 0 Hx # Pregnancies 0 Ectopic pregnancies 0 AB induced 0 Hx Number of Living Children 1 AB spontaneous 0 Past Pregnancies Del. Date GA/Weeks # Preg Succ Route Wgt Sex Labor Lgth Anesth esia Location Prov Complic 01/31/23 40 No Yes 7 lb 10 oz Female j ohson/balbina Delivery Date: 01/31/23 Last Updated by: Felipa Teixeira MD arrest of labor. Lily DS: Data Vitals/I&O Vitals and I&O: Vital Signs Temperature 98.4 F 07/23/25 08:00 Temperature Source Oral 07/23/25 08:00 Pulse 64 07/23/25 08:00 Pulse Rhythm Regular 07/23/25 08:00 Respiratory Rate 12 07/23/25 08:00 Respiratory Depth Normal 07/22/25 19:20 Blood Pressure 123/82 07/23/25 08:00 Blood Pressure Mean 95 07/23/25 08:00 Pulse Oximetry 99 07/23/25 04:15 Oxygen Delivery Method Room Air 07/21/25 06:38 Oxygen Flow Rate 0 07/21/25 06:38 Pain Level 4 07/22/25 16:37 Intake & Output 07/22/25 07/22/25 07/23/25 11:59 23:59 11:59 Output Total 950 / 950 Balance -950 / -950 Output: Urine 950 / 950 Other: Urine Color Yellow
== END 2025-07-23 11:30 | disposition home or self-care (01) | DRG 785 ==
PROVIDERS: Admitting Provider Obstetrics & Gynecology; PCP Nurse Practitioner; Visit Provider Obstetrics & Gynecology
PROC: 10D00Z1 Extraction of Products of Conception, Low, Open Approach (ICD-10-PCS; CPT 59514; principal; 2025-07-21 07:30)
DX: O34.211 Maternal care for low transverse scar from previous cesarean delivery (principal); Z37.0 Single live birth; Z3A.39 39 weeks gestation of pregnancy; Z30.2 Encounter for sterilization; O16.4 Unspecified maternal hypertension, complicating childbirth; O99.344 Other mental disorders complicating childbirth; F32.A Depression, unspecified
CPT/HCPCS: 59514; 58700; 36415; 85025; 88302; 88307; J0330; J0456; J0665; J0690; J1885; J2274; J2312; J2371; J2405; J2704; J3010